=== PATIENT | male | born 1990 | race Caucasian/White ===

== ENCOUNTER 2021-05-19 12:48 | Outpatient (CLI) | payer OTHER, SELFPAY ==
--- NOTE | ~2021-05-19 | US_ITS ---
EXAMINATION: US abdomen complete EXAM DATE: 05/19/2021 14:31 INDICATION: Left upper quadrant pain. TECHNIQUE: Multiple grayscale and Doppler images of the complete abdomen were obtained (by a technolo gist who performed the scan) and subsequently reviewed. There is no prior study for comparison. FINDINGS: The abdominal aorta is normal in caliber. Visualized portion IVC is patent. The pancreatic head a nd body are normal in appearance. The pancreatic tail is not visualized. The liver has normal echogenicity and contour. There are no focal liver lesions identified. There is no evidence of intrahepatic biliary duct dilation. Portal venous flow was seen in the hepatopedal , normal direction and has normal Doppler waveform. Common bile duct measures 4 mm, which is normal. The gallbladder wall is normal in thickness, with ex pected amount of distention. No sonographic evidence of pericholecystic fluid. There is no cholelit hiases. Technologist performing exam reports patient did not demonstrate sonographic Alcocer's sign. Please note that this sign is less reliable in patients who have received pain medication. Right kidney: There is normal contour and echogenicity. It measures 10.3 x 5.1 x 4.1 centimeters. There are no focal renal lesions identified. There is no hydronephrosis. Left kidney: There is normal contour and echogenicity. It measures 10.3 x 4.9 x 4.4 centimeters. Le ft renal 2 cm cyst. There is no hydronephrosis. The spleen measures 12 centimeters and is morphologically normal. IMPRESSION: 1. Unremarkable complete abdominal ultrasound exam. Reviewed, dictated and finalized at location B. SEAT COVERER
== END 2021-05-19 12:49 | disposition home or self-care (01) ==
PROVIDERS: PCP Pediatrics; Visit Provider Physician Assistant
DX: R10.12 Left upper quadrant pain (principal)
CPT/HCPCS: 76700

== ENCOUNTER 2022-11-09 09:06 | Emergency (ER) | payer OTHER, SELFPAY ==
--- NOTE | ~2022-11-09 | XR_ITS ---
EXAMINATION: XR chest 2V DATE: 11/09/2022 10:01 INDICATION: Left chest pain. Shortness of breath. TECHNIQUE: Frontal and lateral views of the chest were obtained. COMPARISON: None. FINDINGS: The chest demonstrates clear lungs without pneumonia, pleural effusion, or pneumothorax. Th e heart size is normal. There are surgical clips in the neck. IMPRESSION: 1. No acute cardiopulmonary disease. Reviewed, dictated and finalized at location L.
[2022-11-09 09:13] VITALS: BP 137/89; PULSE 78; RESP 16; TEMP 36.6; O2SAT 98
--- NOTE | 2022-11-09 09:13 | ECG_ITS ---
Measurements Intervals [place] Rate: 76 P: 32 IN: 175 QRS: -1 QRSD: 109 T: 32 QT: 383 QTc: 431 Interpretive Statements SINUS RHYTHM INDETERMINATE AXIS INCOMPLETE RIGHT BUNDLE BRANCH BLOCK [90+ ms QRS DURATION, TERMINAL R IN V1/V2, 40+ ms S IN I/aVL/V4/V5/V6] NO PREVIOUS ECG AVAILABLE FOR COMPARISON Electronically Signed On 11-09-2022 10:19:35 CDT by Tabby Vázquez M.D.
[2022-11-09 09:26] VITALS: BP 137/89; PULSE 76; RESP 19; TEMP 36.7; O2SAT 98
[2022-11-09 09:27] VITALS: PULSE 76; O2SAT 98
[2022-11-09 09:30] LABS: Basophils Absolute Auto 0.1 K/mm3 (0.0-0.1); Basophils Percent Auto 0.5 % (0.2-1.2); Eosinophils Absolute Auto 0.6 K/mm3 (0-0.3); Eosinophils Percent Auto 5.7 % (0-4.4); Hematocrit 50.8 % (42.0-52.0); Hemoglobin 16.8 g/dL (14.0-18.0); Immature Granulocyte Absolute 0.03 K/mm3 (0.00-0.031); Immature Granulocyte Percent A 0.3 % (0-0.5); Lymphocytes Absolute Auto 2.12 K/mm3 (0.9-3.2); Lymphocytes Percent Auto 19.2 % (18.3-44.2); Mean Corpuscular HGB Conc 33.1 g/dl (32-36); Mean Corpuscular Hemoglobin 28.8 pg (26-34); Mean Platelet Volume 9.7 fl (7.4-10.4); Monocytes Absolute Auto 0.5 K/mm3 (0.1-0.6); Monocytes Percent Auto 4.4 % (2.6-8.5); Neutrophils Absolute Auto 7.7 K/mm3 (1.3-6.7); Neutrophils Percent Auto 69.9 % (45.5-73.1); Platelet Count Result 228 k/mm3 (150-375); Red Blood Count 5.84 M/mm3 (4.6-6.20); Red Cell Distribution Width 13.5 % (11.5-14.5); White Blood Count 11.1 K/mm3 (4.5-10.0)
--- NOTE | 2022-11-09 09:34 | ED.CHESTPAIN ---
HPI - Chest Pain General Chief Complaint: Chest Pain Stated Complaint: chest pain Time Seen by Provider: 11/09/22 09:16 Source: patient Mode of arrival: ambulatory Limitations: no limitations History of Present Illness HPI narrative: This is a 32-year-old male that presents to the emergency department for an episode of chest pain this morning. Reports a couple of hours ago while he was driving he had onset of a left-sided double chest pain. This was relieved with relaxation and deep breathing. It lasted about 20 minutes. He did take a full aspirin. Denies fever, cough, shortness of breath or lower extremity edema. Related Data Home Medications Medication Instructions Recorded Confirmed levothyroxine 100 mcg capsule 100 mcg PO DAILY 07/12/22 Allergies Allergy/AdvReac Type Severity Reaction Status Date / Time amoxicillin Allergy Unknown hives Verified 11/09/22 09:30 bee stings Allergy Unknown Hives Uncoded 11/09/22 09:30 Review of Systems Review of Systems: CONSTITUTIONAL: Denies fever CARDIOVASCULAR: Reports chest pain. Denies palpitations, or edema. RESPIRATORY: Denies cough or dyspnea. PSYCHIATRIC: Reports anxiety All systems reviewed & are unremarkable except as noted in HPI and below PMFSH Past Medical History Medical History (Updated 11/09/22 @ 13:06 by Sunita Francis PA-C) History of hypothyroidism Social History Social History Smoking status: Never smoker Alcohol intake: current Alcohol use details: socially Substance use: never Substance use type: does not use Lack of Transportation: No Lack of Food: Never True Current Housing: I Have Housing Concerned About Future Housing: No Difficulty Paying Gas/Electric Bills: No Difficulty Paying for Meds: No Currently Unemployed: No Education: High School Diploma/GED Difficulty w/ Childcare or Family Care: No Exam Narrative: GENERAL: Well-appearing, well-nourished, and in no acute distress. HEAD: Normocephalic, atraumatic. EYES: EOMI. NECK: No JVD CHEST: Clear to auscultation. No respiratory distress. No wheezes rales or rhonchi HEART: Regular rate and rhythm. No murmur heard. Normal peripheral pulses. EXTREMITIES: Normal range of motion. No edema. SKIN: Warm, dry, no rash. NEURO: No focal deficits. Alert and oriented x3. PSYCH: Normal mood and affect Course Course Emergency Course: Patient updated on workup and agrees with plan of care Vital Signs Vital signs: Vital Signs Temperature 98 F 11/09/22 09:13 Pulse Rate 78 11/09/22 09:13 Respiratory Rate 16 11/09/22 09:13 Blood Pressure 137/89 11/09/22 09:13 Pulse Oximetry 98 11/09/22 09:13 Oxygen Delivery Room Air 11/09/22 09:13 Temperature 98.0 F 11/09/22 09:26 Pulse Rate 76 11/09/22 11:25 Respiratory Rate 19 11/09/22 11:25 Blood Pressure 116/82 11/09/22 11:25 Pulse Oximetry 98 11/09/22 11:25 Oxygen Delivery Room Air 11/09/22 09:27 MDM - Chest Pain MDM Narrative Medical decision making narrative: Patient presents to the ER for an episode of chest pain this morning. Patient's vitals are stable. He is in no acute distress. CBC and metabolic panel without concerning findings. EKG without acute ST changes and baseline and 3-hour troponin are negative. Chest x-ray without acute cardiopulmonary abnormality. PERC criteria negative. His heart score is 0. Patient was updated on workup and agrees with plan of care. He is to follow up with PCP. He was given warnings to return to the ER Differential Diagnosis Differential diagnosis: Likely stable angina, unstable angina pectoris, atypical chest pain and costochondritis Lab Data Attestation: I reviewed the patient's lab results. 11/09/22 09:24 11/09/22 09:24 Labs: Lab Results 11/09/22 11/09/22 Range/Units 09:24 12:17 WBC 11.1 H (4.5-10.0) K/mm3 RBC 5.84 (4.6-6.20)
[2022-11-09 09:42] LABS: INR 0.9; Prothrombin Time 12.9 Seconds (11.1-14.7)
[2022-11-09 09:43] LABS: Partial Thromboplastin Time 31.3 SECONDS (22.3-36.8)
[2022-11-09 09:44] LABS: Alanine Aminotransferase 42 U/L (6-50); Albumin Level 5.1 g/dL (3.5-5.1); Alkaline Phosphatase 86 U/L (38-126); Anion Gap 10 mmol/L (8-16); Aspartate Amino Transferase 32 U/L (17-59); Bilirubin,Total 1.1 mg/dL (0.2-1.3); Blood Urea Nitrogen 13 mg/dL (9-20); Calcium 9.6 mg/dL (8.4-10.2); Carbon Dioxide 28 mmol/L (22-30); Chloride 105 mmol/L (98-107); Estimated CRCL calculation 139 ml/min; Estimated Glomerular Filt Rate > 60; Glucose 101 mg/dL (65-110); Lipase 92 U/L (23-300); Potassium 3.8 mmol/L (3.4-5.0); Sodium 143 mmol/L (137-145)
[2022-11-09 09:52] LABS: Troponin I < 0.012 ng/mL (0.000-0.034)
[2022-11-09 11:25] VITALS: BP 116/82; PULSE 76; RESP 19; O2SAT 98
[2022-11-09 12:44] LABS: Troponin I < 0.012 ng/mL (0.000-0.034)
[2022-11-09 13:23] VITALS: BP 117/87; PULSE 79; RESP 19; O2SAT 96
== END 2022-11-09 13:27 | disposition home or self-care (01) ==
PROVIDERS: General Practice; Emergency Provider Physician Assistant; PCP Physician Assistant
DX: R07.89 Other chest pain (principal); E03.9 Hypothyroidism, unspecified
CPT/HCPCS: 36415; 71046; 80053; 83690; 84484; 85025; 85610; 85730; 93005; 99284

== ENCOUNTER 2022-12-26 10:49 | Outpatient (CLI) | payer OTHER, SELFPAY ==
--- NOTE | 2022-12-26 11:30 | NEURO_ITS ---
Impression: # Complains of numbness of extremities. # Mild left ulnar neuropathy across the elbow; Normal nerve conduction study otherwise. # Normal needle/EMG without any neurogenic changes or myotonia. # Clinical correlation recommended. Nerve Conduction Studies Anti Sensory Summary Table Stim Site NR Peak (ms) P-T Amp (?V) Site1 Site2 Delta-P (ms) Dist (cm) Leonid (m/s) Left Median Anti Sensory (2-3nd Digit) Wrist 2.7 81.7 Wrist 2-3nd Digit 2.7 14.0 52 Wrist 2.8 66.0 Wrist 2-3nd Digit 2.7 14.0 52 Right Median Anti Sensory (2-3nd Digit) Wrist 2.5 75.1 Wrist 2-3nd Digit 2.5 14.0 56 Wrist 2.6 65.3 Wrist 2-3nd Digit 2.5 14.0 56 Left Radial Anti Sensory (Base 1st Digit) Wrist 1.8 24.5 Wrist Base 1st Digit 1.8 0.0 Right Radial Anti Sensory (Base 1st Digit) Wrist 2.3 15.7 Wrist Base 1st Digit 2.3 0.0 Left Sup Fibular Anti Sensory (Ant Lat Mall) 14 cm 3.6 10.8 14 cm Ant Lat Mall 3.6 16.0 44 Right Sup Fibular Anti Sensory (Ant Lat Mall) 14 cm 3.5 12.1 14 cm Ant Lat Mall 3.5 16.0 46 Left Sural Anti Sensory (Lat Mall) Calf 3.3 11.4 Calf Lat Mall 3.3 16.0 48 Right Sural Anti Sensory (Lat Mall) Calf 3.4 11.5 Calf Lat Mall 3.4 16.0 47 Left Ulnar Anti Sensory (5th Digit) Wrist 2.6 48.5 Wrist 5th Digit 2.6 14.0 54 Right Ulnar Anti Sensory (5th Digit) Wrist 2.2 67.1 Wrist 5th Digit 2.2 14.0 64 Motor Summary Table Stim Site NR Onset (ms) O-P Amp (mV) Site1 Site2 Delta-0 (ms) Dist (cm) Leonid (m/s) Left Median Motor (Abd Poll Brev) Wrist 3.4 4.0 Elbow Wrist 5.7 35.0 61 Elbow 9.1 2.2 Right Median Motor (Abd Poll Brev) Wrist 3.1 5.9 Elbow Wrist 5.3 33.0 62 Elbow 8.4 4.4 Left Peroneal Motor (Vastus Med) Ankle 4.2 2.5 Popit Ankle 9.3 46.0 49 Popit 13.5 2.0 Right Peroneal Motor (Vastus Med) Ankle 4.2 1.3 Popit Ankle 9.2 42.0 46 Popit 13.4 4.1 Left Tibial Motor (Abd Lozoya Brev) Ankle 4.6 4.1 Knee Ankle 9.7 46.0 47 Knee 14.3 3.4 Right Tibial Motor (Abd Lozoya Brev) Ankle 4.5 4.9 Knee Ankle 10.2 46.0 45 Knee 14.7 6.2 Left Ulnar Motor (Abd Dig Minimi) Wrist 3.0 3.5 A Elbow Wrist 5.7 33.0 58 A Elbow 8.7 2.8 Right Ulnar Motor (Abd Dig Minimi) Wrist 2.6 6.0 A Elbow Wrist 5.4 33.0 61 A Elbow 8.0 5.3 F Wave Studies NR F-Lat (ms) L-R F-Lat (ms) Left Median (Mrkrs) (Abd Poll Brev) 29.03 0.62 Right Median (Mrkrs) (Abd Poll Brev) 28.40 0.62 Left Peroneal (Mrkrs) (EDB) 53.40 0.75 Right Peroneal (Mrkrs) (EDB) 52.66 0.75 Left Tibial (Mrkrs) (Abd Hallucis) 53.79 0.04 Right Tibial (Mrkrs) (Abd Hallucis) 53.76 0.04 Left Ulnar (Mrkrs) (Abd Dig Min) 28.62 0.51 Right Ulnar (Mrkrs) (Abd Dig Min) 29.12 0.51 EMG Side Muscle Nerve Root Ins Act Fibs Amp Dur Recrt Comment Right 1stDorInt Ulnar C8-T1 Nml Nml Nml Nml Nml Right Ext Indicis Radial (Post Int) C7-8 Nml Nml Nml Nml Nml Right Ext Digitorum Radial (Post Int) C7-8 Nml Nml Nml Nml Nml Right BrachioRad Radial C5-6 Nml Nml Nml Nml Nml Right PronatorTeres Median C6-7 Nml Nml Nml Nml Nml Right Abd Poll Brev Median C8-T1 Nml Nml Nml Nml Nml Right AntTibialis Dp Br Fibular L4-5 Nml Nml Nml Nml Nml
== END 2022-12-26 10:50 | disposition home or self-care (01) ==
LOC: ANHNEURO 10:50
PROVIDERS: PCP Physician Assistant; Visit Provider Student in an Organized Health Care Education/Training Program
DX: G56.22 Lesion of ulnar nerve, left upper limb (principal); G62.9 Polyneuropathy, unspecified
CPT/HCPCS: 95886; 95913

== ENCOUNTER 2024-01-09 08:56 | Outpatient (NON) | payer OTHER, SELFPAY | END 2024-01-09 08:57 | disposition home or self-care (01) | LOC: ANHLAB 01-10 08:57 | PROVIDERS: PCP Physician Assistant; Visit Provider Internal Medicine Gastroenterology | DX: K20.0 Eosinophilic esophagitis (principal) | CPT/HCPCS: 88305 ==

== ENCOUNTER 2024-01-09 09:13 | Day surgery (SDC) | payer OTHER, SELFPAY ==
[2024-01-01 14:30] VITALS: BMI 31.2
[2024-01-04 09:51] VITALS: BMI 31.1
[2024-01-09 09:57] VITALS: BP 125/96; PULSE 74; RESP 18; TEMP 37.1; O2SAT 98
[2024-01-09] MEDS: LACTATED RINGERS 1,000 ML 150 ML IV CONT (10:00)
--- NOTE | 2024-01-09 10:53 | PM.HPGS ---
History of Present Illness History of Present Illness Consent: Risks, benefits, and alternatives have been discussed and questions answered. Patient agrees to proceed with procedure. Chief complaint: Dysphagia Narrative: Julio Salazar is a 33 year old male referred for EGD. Patient complains of intermittent dysphagia. Typically will have food catching the mid substernal portion of the chest usually chicken or steak. Patient has occasional but the very infrequent he was advised to take Prilosec but is only done so for the last 1-2 days. Patient to denies any history of allergies. Aside from bee stings and penicillin. Family history is noncontributory. Review of Systems Review of Systems: All systems reviewed & are unremarkable except as noted in HPI and below PMFSH Past Medical History Medical History (Updated 01/09/24 @ 06:57 by Ortiz Palacios DO) Acid reflux History of hypothyroidism Peripheral neuropathy Surgical History Surgical History H/O thyroidectomy Social History Social History Smoking status: Former smoker Tobacco type: cigarettes Alcohol intake: current Alcohol use details: 4 per month Substance use: never Substance use type: does not use Lack of Transportation: No Lack of Food: Never True Current Housing: I Have Housing Concerned About Future Housing: No Difficulty Paying Gas/Electric Bills: No Difficulty Paying for Meds: No Currently Unemployed: No Education: High School Diploma/GED Difficulty w/ Childcare or Family Care: No Living arrangements: with family Spiritual care concerns: No Meds Home Medications and Allergies Home Medications Medication Instructions Recorded Confirmed Type levothyroxine 100 mcg capsule 100 mcg PO DAILY 07/12/22 01/09/24 History omeprazole 40 mg capsule,delayed 40 mg PO DAILY #30 caps 12/31/23 01/09/24 Rx release Allergies Allergy/AdvReac Type Severity Reaction Status Date / Time amoxicillin Allergy Unknown hives Verified 01/09/24 09:56 bee venom protein (honey bee) Allergy Unknown Hives Verified 01/09/24 09:56 Vital Signs Vital Signs - 24 hr 01/09/24 09:57 Temperature 98.8 F Pulse Rate 74 Respiratory Rate 18 Blood Pressure 125/96 H Pulse Oximetry 98 Oxygen Delivery Room Air Exam Narrative: Physical exam reveals patient to be alert. Signs stable. HEENT exam is unremarkable. Patient is anicteric. Lungs are clear to auscultation and percussion. This without murmur or extra sounds. Abdomen bowel sounds are present soft nontender with no organomegaly. Assessment and Plan Assessment and plan (1) Dysphagia: Qualifiers: Dysphagia type: esophageal phase Qualified Code(s): R13.19 - Other dysphagia Code(s): R13.10 - Dysphagia, unspecified Status: Acute Assessment and Plan: Patient reports intermittent dysphagia to solid foods such as chicken. Plan for EGD to assess more thoroughly. Further recommendations may be given after endoscopy.
--- NOTE | 2024-01-09 12:22 | WPDANESEPPF ---
Anes - Initial Pre Proc Eval Procedure: Operation Date: 01/09/24 11:30 Proposed Procedures p Esophagogastroduodenoscopy - Mars Peres MD Date/Time: 01/09/24 12:22 Surgeon: Mars Peres MD Pre Op Diagnosis: Dysphagia Patient Data Age: 33 Gender: M Height: 1.91 m Weight: 113.6 kg Last Vital Signs Temp 37.1 C 01/09/24 09:57 Pulse 74 01/09/24 09:57 Resp 18 01/09/24 09:57 BP 125/96 H 01/09/24 09:57 Pulse Ox 98 01/09/24 09:57 O2 Del Method Room Air 01/09/24 09:57 Allergies Allergy/AdvReac Type Severity Reaction Status Date / Time amoxicillin Allergy Unknown hives Verified 01/09/24 09:56 bee venom protein (honey bee) Allergy Unknown Hives Verified 01/09/24 09:56 Home Medications Medication Instructions Recorded Confirmed Type levothyroxine 100 mcg capsule 100 mcg PO DAILY 07/12/22 01/09/24 History omeprazole 40 mg capsule,delayed 40 mg PO DAILY #30 caps 12/31/23 01/09/24 Rx release Patient hx anesthesia problems: none Family hx anesthesia problems: none Results Review: All pre-operative results and documents have been reviewed as part of the pre-operative evaluation. [facility] Past Medical History Medical History (Updated 01/09/24 @ 06:57 by Ortiz Palacios DO) Acid reflux History of hypothyroidism Peripheral neuropathy Surgical History Surgical History H/O thyroidectomy Social History Social History Smoking status: Former smoker Tobacco type: cigarettes Alcohol intake: current Alcohol use details: 4 per month Substance use: never Substance use type: does not use Lack of Transportation: No Lack of Food: Never True Current Housing: I Have Housing Concerned About Future Housing: No Difficulty Paying Gas/Electric Bills: No Difficulty Paying for Meds: No Currently Unemployed: No Education: High School Diploma/GED Difficulty w/ Childcare or Family Care: No Living arrangements: with family Spiritual care concerns: No Anes - Eval Final PreProcedure Day of Procedure 01/09/24 12:22 Patient weight: obese Heart: regular rate and rhythm Lungs: clear to auscultation Airway: Mallampati scale class II Neurological: alert and oriented Last oral intake: >/= 8 hours ASA classification: II Emergent: no Anesthetic plan: proceed Anesthesia type and monitoring: general GIVS and standard monitoring Results Review: All pre-operative results and documents have been reviewed as part of the pre-operative evaluation. Informed Consent: The patient's anesthetic plan and its attendant risks and benefits were discussed with the patient/family/POA. Questions were solicited and answers provided to the satisfaction of the patient/family/POA.
[2024-01-09 12:48] VITALS: BP 129/60; PULSE 66; RESP 16; O2SAT 100
[2024-01-09 12:58] VITALS: BP 123/87; PULSE 63; RESP 15; O2SAT 97
[2024-01-09 13:08] VITALS: BP 116/83; PULSE 73; RESP 15; O2SAT 99
--- NOTE | 2024-01-09 14:01 | WPDANESPN ---
Anes - Prog Note Post-Op Date/Time: 01/09/24 14:01 Cardiovascular status: normal Respiratory status: normal Airway patency: baseline Mental status: baseline Post-Op hydration status: normal Vital Signs: Last Vital Signs Temp 37.1 C 01/09/24 09:57 Pulse 73 01/09/24 13:08 Resp 15 01/09/24 13:08 BP 116/83 01/09/24 13:08 Pulse Ox 99 01/09/24 13:08 O2 Del Method Room Air 01/09/24 13:08 Pain Score (VAS): 0 I/O: Intake & Output 01/08/24 01/09/24 01/09/24 23:59 07:59 15:59 Intake Total 900 Balance 900 Post-procedural complaints: none Patient Feedback: Patient satisfied with anesthetic care. Other Findings: Patient vital signs back to baseline. Patient denies nausea and vomiting. Patient's pain under control. Patient OK for discharge.
== END 2024-01-09 13:38 | disposition home or self-care (01) ==
PROVIDERS: PCP Physician Assistant; Visit Provider Internal Medicine Gastroenterology
PROC: 0DJ08ZZ Inspection of Upper Intestinal Tract, Via Natural or Artificial Opening Endoscopic (ICD-10-PCS; CPT 43235; principal; 2024-01-09 11:30)
DX: R13.19 Other dysphagia (principal); K22.2 Esophageal obstruction
CPT/HCPCS: 43450; 43239

== ENCOUNTER 2024-01-09 17:47 | Emergency (ER) | payer OTHER, SELFPAY ==
--- NOTE | ~2024-01-09 | XR_ITS ---
EXAMINATION: XR chest 2V DATE: 01/09/2024 18:50 INDICATION: Chest pain. TECHNIQUE: Frontal and lateral views of the chest were obtained. COMPARISON: None. FINDINGS: There is mild scarring at right lung apex. No pneumonia, pleural effusion, or pneumothorax is normal. The heart size is normal. There are surgical clips in the neck. IMPRESSION: 1. No acute cardiopulmonary disease. Reviewed, dictated and finalized at location A.
--- NOTE | ~2024-01-09 | CT_ITS ---
EXAMINATION: CT soft tissue neck chest w DATE: 01/09/2024 22:09 INDICATION: Neck and chest pain after endoscopy. TECHNIQUE: Computed tomography (CT) of the neck and chest was performed with 75 mL Omnipaque-350 intr avenous contrast. Automated exposure control and iterative reconstruction technique were employed. Th e dose-length product was 1477.05 mGy-cm. COMPARISON: Chest 2 views 01/09/2024 FINDINGS: CT NECK: There are no pathologically enlarged lymph nodes. There are changes of partial resection of the thyroid. There is 0% stenosis of the proximal internal carotid arteries relative to normal distal artery lumen diameters. CT CHEST: The lungs demonstrate mild atelectasis. No pleural effusion. The heart size is normal. No p ericardial effusion. There is mild thoracic spondylosis. IMPRESSION: 1. No etiology for the patient's symptoms. Reviewed, dictated and finalized at location A.
[2024-01-09 17:57] VITALS: BP 134/81; PULSE 86; RESP 15; TEMP 36.4; O2SAT 97
--- NOTE | 2024-01-09 18:28 | ECG_ITS ---
Test Date: 2024-01-09 21:33:42 Measurements Intervals [place] Rate: 84 P: 33 TN: 160 QRS: -27 QRSD: 116 T: 30 QT: 359 QTc: 426 Interpretive Statements SINUS RHYTHM BORDERLINE LEFT AXIS DEVIATION [QRS AXIS < -20] INCOMPLETE RIGHT BUNDLE BRANCH BLOCK [90+ ms QRS DURATION, TERMINAL R IN V1/V2, 40+ ms S IN I/aVL/V4/V5/V6] NONSPECIFIC ST ELEVATION [0.05+ mV ST ELEVATION] No previous ECG available for comparison Electronically Signed On 01-10-2024 11:59:54 CDT by Ritesh Cohn M.D.
--- NOTE | 2024-01-09 18:28 | ED.GENADULT ---
HPI - General Adult General Chief complaint: Unspecified <Sunita Francis PA-C - Last Filed: 01/14/24 18:19> Stated complaint: throat pain <Sunita Francis PA-C - Last Filed: 01/14/24 18:19> Time Seen by Provider: 01/09/24 18:28 <Sunita Francis PA-C - Last Filed: 01/14/24 18:19> Focused HPI: This is a 23 year old male that presents to the ER for chest pain ongoing since his EGD. He had this with Dr. Peres today. Reports he had an esophageal dilation. He has had worsening pain since. Reports when he got out of the shower he almost passed out. Reports he has tried to eat and drink and that has made the pain worse. He has not taken anything for pain. GENERAL: Well-appearing, well-nourished, and in no acute distress. HEAD: Normocephalic, atraumatic. CHEST: Clear to auscultation. ?No respiratory distress. HEART: Regular rate and rhythm.? NEURO: ?Alert and oriented x3. Patient screened in triage and initial orders placed.? ?Additional care and disposition to be based upon?diagnostic testing and treatment. <Sunita Francis PA-C - Last Filed: 01/14/24 18:19> History of Present Illness HPI narrative: Patient 33-year-old gentleman presents emergency department with chief complaint of esophageal pain. The patient reports that he had an EGD biopsy esophageal dilatation the patient states that he started having pain in his esophagus after the procedure when he was at home. The patient reports he tried to eat and drink but had difficulty for pain patient reports that he is still able to swallow his own secretions denies shortness of breath <Hank San MD - Last Filed: 01/10/24 00:00> Related Data Home medications: Home Medications Medication Instructions Recorded Confirmed levothyroxine 100 mcg capsule 100 mcg PO DAILY 07/12/22 01/09/24 <Sunita Francis PA-C - Last Filed: 01/14/24 18:19> Allergies/adverse reactions: Allergies Allergy/AdvReac Type Severity Reaction Status Date / Time amoxicillin Allergy Hives Verified 01/11/24 09:26 bee venom protein (honey bee) Allergy Hives Verified 01/11/24 09:26 <Sunita Francis PA-C - Last Filed: 01/14/24 18:19> Review of Systems Review of Systems: A 10 system review of systems was completed on the patient and is negative except for what is stated in the HPI. Nursing and ancillary documentation was reviewed. <Hank San MD - Last Filed: 01/10/24 00:00> PMFSH Past Medical History Medical History: Medical History (Updated 01/11/24 @ 09:26 by Galo Colon) Acid reflux History of hypothyroidism Peripheral neuropathy <Sunita Francis PA-C - Last Filed: 01/14/24 18:19> Surgical History Surgical History: Surgical History (Updated 01/11/24 @ 09:26 by Galo Colon) H/O thyroidectomy <Sunita Francis PA-C - Last Filed: 01/14/24 18:19> Social History Social History: Social History (System 01/11/24 @ 09:26 by Galo Colon) Smoking status: Former smoker Tobacco type: cigarettes Alcohol intake: current Alcohol use details: 4 per month Substance use: never Substance use type: does not use Lack of Transportation: No Lack of Food: Never True Current Housing: I Have Housing Concerned About Future Housing: No Difficulty Paying Gas/Electric Bills: No Difficulty Paying for Meds: No Currently Unemployed: No Education: High School Diploma/GED Difficulty w/ Childcare or Family Care: No Living arrangements: with family Spiritual care concerns: No <Sunita Francis PA-C - Last Filed: 01/14/24 18:19> Exam Narrative: GENERAL: Well-appearing, well-nourished, and in no acute distress. HEAD: Normocephalic, atraumatic. EYES: PERRLA and EOMI. ENT: Nares clear, no rhinorrhea or epistaxis. Mucous membranes moist. Patient is swallowing his own secretions NECK: Supple. No subcutaneous emphysema CHEST: Clear to auscultation. No respiratory distress. No subcu
[2024-01-09] MEDS: PANTOPRAZOLE SODIUM IV 40 MG VIAL IV PUSH (21:09)
[2024-01-09 21:20] LABS: Basophils Percent Auto 0.2 % (0.2-1.2); Eosinophils Absolute Auto 0.1 K/mm3 (0-0.3); Eosinophils Percent Auto 0.6 % (0-4.4); Hematocrit 51.3 % (42.0-52.0); Hemoglobin 17.3 g/dL (14.0-18.0); Immature Granulocyte Absolute 0.04 K/mm3 (0.00-0.031); Immature Granulocyte Percent A 0.2 % (0-0.5); Lymphocytes Absolute Auto 1.15 K/mm3 (0.9-3.2); Mean Corpuscular HGB Conc 33.7 g/dl (32-36); Mean Corpuscular Hemoglobin 29.6 pg (26-34); Mean Corpuscular Volume 87.7 fl (80-100); Mean Platelet Volume 9.6 fl (7.4-10.4); Monocytes Absolute Auto 0.8 K/mm3 (0.1-0.6); Monocytes Percent Auto 4.3 % (2.6-8.5); Neutrophils Percent Auto 88.7 % (45.5-73.1); Platelet Count Result 235 k/mm3 (150-375); Red Blood Count 5.85 M/mm3 (4.6-6.20); Red Cell Distribution Width 13.7 % (11.5-14.5); White Blood Count 19.2 K/mm3 (4.5-10.0)
[2024-01-09 21:31] LABS: Alanine Aminotransferase 38 U/L (6-50); Albumin Level 5.1 g/dL (3.5-5.1); Alkaline Phosphatase 84 U/L (38-126); Anion Gap 11 mmol/L (4-12); Aspartate Amino Transferase 30 U/L (17-59); Blood Urea Nitrogen 15 mg/dL (9-20); Carbon Dioxide 27 mmol/L (22-30); Chloride 103 mmol/L (98-107); Estimated CRCL calculation 136 ml/min; Estimated Glomerular Filt Rate > 60; Glucose 93 mg/dL (65-110); INR 1.1; Lipase 93 U/L (23-300); Partial Thromboplastin Time 28.9 Seconds (22.3-36.8); Potassium 3.9 mmol/L (3.4-5.0); Prothrombin Time 14.4 Seconds (11.1-14.7); Sodium 141 mmol/L (137-145)
[2024-01-09 21:43] LABS: Troponin I < 0.012 ng/mL (0.000-0.034)
[2024-01-09] MEDS: BELLADONNA ALK/PHENOB ELIX 10 ML, MAG HYDROX/ALUMINUM HYD/SIMETH 30 ML, LIDOCAINE HCL 2... PO (22:56)
[2024-01-09 23:39] VITALS: PULSE 67; RESP 16; TEMP 36.6; O2SAT 93
== END 2024-01-10 00:10 | disposition home or self-care (01) ==
PROVIDERS: Physician Assistant; Emergency Provider Emergency Medicine; PCP Physician Assistant
DX: G89.18 Other acute postprocedural pain (principal); R07.0 Pain in throat; I45.10 Unspecified right bundle-branch block
CPT/HCPCS: 36415; 70491; 71046; 71260; 80053; 83690; 84484; 85025; 85610; 85730; 88305; 93005; 96374; 99284; A9270; J2470; Q9967

== ENCOUNTER 2024-10-31 21:03 | Emergency (ER) | payer SELFPAY ==
--- NOTE | ~2024-10-31 | CT_ITS ---
EXAMINATION: CT abdomen pelvis w con DATE: 10/31/2024 22:41 INDICATION: Right lower quadrant abdominal pain TECHNIQUE: Computed tomography (CT) of the abdomen and pelvis was performed with 100 mL Omnipaque-350 intravenous contrast. Automated exposure control and iterative reconstruction technique were employe d. The dose-length product was 1360.14 mGy-cm. COMPARISON: None FINDINGS: Mild dependent atelectasis in the bilateral lower lobes. Heart size is normal. No pericardial or pleu ral effusion. Liver, gallbladder, spleen, pancreas and bilateral adrenal glands are normal. 1.2 cm le ft renal cyst. There is mild right hydroureter without hydronephrosis which extends distally to parti ally obstructing 4 mm stone at the right ureterovesicular junction. Bladder is otherwise unremarkable . Small bilateral fat-containing inguinal hernias. Mild scattered diverticulosis without adjacent fro m trace stranding to suggest diverticular colitis. Small bowel and appendix are normal. No free intra peritoneal gas or fluid. No pathologically enlarged abdominal or pelvic lymphadenopathy. Subacute evaristo earing T12 compression fracture with one third anterior vertebral body height loss. IMPRESSION: 1. 4 mm at least partially obstructing stone at the right ureterovesicular junction with mild right h ydronephrosis but without joan hydroureter. 2. Subacute appearing T12 compression fracture. Reviewed, dictated and finalized at location A. IMPRESSION: 1. 4 mm at least partially obstructing stone at the right ureterovesicular junc tion with mild right hydronephrosis but without joan hydroureter. 2. Subacute appearing T12 compression fracture.
--- OUTSIDE RECORDS SUMMARY | 2024-10-31 21:05 | XMS_ITS | Clinical Summary ---
Author Organization [facility] Address [address] [place] [id number] Care Team Providers Care Belling Machine Operator Name Role Phone Alice Rai MD Primary Care Provider [phone] Social History Tobacco Use Types Packs/Day Years Used Date Smoking Tobacco: Never Assessed Sex and Gender Information Value Date Recorded Sex Assigned at Not on file Legal Sex Male 7:28 PM CDT Gender Identity Not on file Sexual Orientation Not on file Plan of Treatment Health Maintenance Due Date Last Done Comments Annual Physical 07/02/1991 Hepatitis C 2006 DTaP, Tdap and Td Vaccines ( 1 - Tdap) 07/02/2007 Hepatitis B Vaccines (1 of 3 - 19+ 3-dose series) 07/02/2007 HPV Vaccines (1 - 3-dose SCD M series) 07/02/2015 COVID-19 Vaccine ( - 2023-2 5 season) 2023 Meningococcal B Vaccine Aged Out No l onger eligible based on patient's age to complete this topic Meningococcal Vaccine Aged Out No german catracho eligible based on patient's age to complete this topic Pneumococcal Vaccine: Pediat rics (0 to 5 Years) and At-Risk Patients (6 to 49 Years) Aged Out No longer eligible b ased on patient's age to complete this topic RSV Immunizations Under 20 Months Aged Out No longer eligible based on patient's age to complete this topic Care Teams Belling Machine Operator Relationship Specialty Start Date End Date Alice Rai MD PCP - General 08/28/15
--- OUTSIDE RECORDS SUMMARY | 2024-10-31 21:05 | XMS_ITS | Data Portability ---
Author Organization [facility] SIVimal [facility] Address [address] [place] [address] Care Team Providers Care General Cargo Clerk Name Role Phone HUGO ROMAN Primary Care Provider Assessment Encounter Date Assessment Date Assessment LastModified by Organization Details LastModified Time 03/03/2022 03/03/2022 implant in mouth dental false teeth. MS in aunt mom side dx 6 years ago. Not available 03/03/2022 12:45:02 12/03/2023 12/03/2023 sent out with blood work to be fasting Not available 12/03/2023 13:17:54 Plan of Treatment Reminders Order Date Submit Date Provider Last Modified By Organization Details Last Modified Time Details Appointments None recorded. Lab CBC w/ auto diff 2023 024 DERE[facility], [address] [facility], [address], [place], [address], 4 05:10:52 CMP, serum or plasma 2023 024 [facility]ERE[facility], [address] [facility] [address], [address], 4 10:13:47 CBC w/ auto diff 2023 024 DERE[facility], [address] [facility] [address], [place], [address], 4 10:13:48 lipid panel, serum 2023 024 DEREK [facility], [address] [facility] [address] [facility], [address], [place], [address], 4 10:13:46 TSH, ultra-sensi tive, serum 2023 024 [facility]ERE[facility], [address] [facility], [address], [place], [address], 4 10:13:48 CBC w/ auto diff 2022 023 DERE[facility], [address], [place], [address], 3 20:09:38 CMP, serum or plasma 2022 023 [facility], [address], [place], [address], 3 20:09:37 TSH + free T4, serum 2022 023 [facility], [address], [place], [address], 3 10:15:37 vitamin B12 + folate, serum or blood 2021 022 [facility], [address], [place], [address], 2 07:09:55 magnesium, serum or plasma 2021 022 [facility], [address], [place], [address], 2 22:06:57 CMP, serum or plasma 2021 022 [facility], [address], [place], [address], 2 08:16:48 hepatitis C Ab, signal-to-c utoff, serum or plasma 2021 022 [facility], [address], [place], [address], 2 08:16:50 lipid panel, serum 2021 022 [facility], [address], [place], [address], 2 08:16:47 TSH + free T4, serum 2021 022 [facility], [address], [place], [address], 2 08:16:51 Referral gastroenter ologist referral 2023 024 DEREK Peres MD, [address] [place] [address] [address], [place], [address], 4 16:10:58 neurologist referral 2021 022 [email or web address] Not available 3 09:08:53 Procedures None recorded. Surgeries None recorded. Imaging None recorded. Medication Orders levothyroxi ne 100 mcg tablet 2023 024 DEREK [id number], [address] [place], [place], [id number], 4 13:14:59 levothyroxi ne 100 mcg tablet 2022 023 MAGNOLIA [id number], [address] [place], [place], [id number], 3 08:27:46 Patient TargetsNo targets recorded. Patient Instructions Encounter Date Encounter Id Patient Instructions Last Modified By Organization Details Last Modified Time 01/02/2022 [id number] A healthy lifestyle: care instructions Not available 01/03/2022 09:50:08 03/03/2022 [id number] A healthy lifestyle: care instructions Not available 03/13/2022 20:55:26 11/21/2022 [id number] A healthy lifestyle: care instructions Not available 11/21/2022 08:16:40 12/03/2023 [id number] A healthy lifestyle: care instructions Not available 12/03/2023 13:17:12 Well Visit, Ages 18 to 65: Care Instructions Not available 12/03/2023 13:16:40 Reason for Referral Neurologist Referral for Par esthesia of upper limb Referring Physician: Hugo Roman, Content Director, Encounter Date: 03/03/2022 Director Systems Referral for Chokes when swallowing Referring Physician: Hugo Roman Content Director, Encounter Date: 12/03/2023 Results Created Date Observation Date Name Description Value Unit Range Abnormal Flag Note LastModifiedBy Organization Detail LastModifiedTime 01/04/20 22 01/04/2022 LIPID PANEL cholesterol, total 192 mg/dL 100-19 9 Not Available [facility] ([facility]) [address] [place], [address], 01/04/2022 08:16:47 01/04/2001/04/2022 LIPID PANEL triglyceride s 85 mg/dL 0-149 Not Available [facility] ([facility]) [address] [place], [address], 01/04/2022 08:16:47 01/04/20 22 01/04/2022 LIPID PANEL HDL cholesterol 38 mg/dL >39 below low normal Not Available [facility] ([facility]) [address] [place], [address], 01/04/2022 08:16:47 01/04/20 22 01/04/2022 LIPID PANEL VLDL cholesterol john 16 mg/dL 5-40 Not Available [facility] ([facility]) [address] [place], [address], 01/04/2022 08:16:47 01/04/20 22 01/04/2022 LIPID PANEL LDL chol calc ([facility]) 138 mg/dL 0-99 above high normal Not Available [facility] ([facility]) [address] [facility], [place], [address], 01/04/2022 08:16:47 01/04/20 22 01/04/2022 COMP. METAB OLIC PANEL (14) glucose 85 mg/dL 70-99 Ple ase note refer ence inter ximena luciano e Not Available [facility] ([facility]) [address] [facility], [place], [address], 01/04/2022 08:16:48 01/04/20 22 01/04/2022 COMP. METAB OLIC PANEL (14) BUN 18 mg/dL 6-20 Not Available [facility] ([facility]) [address] [facility], [place], [address], 01/04/2022 08:16:48 01/04/20 22 01/04/2022 COMP. METAB OLIC PANEL (14) creatinine 0.97 mg/dL 0.76-1 .27 Not Available [facility] ([facility]) [address] [place], [address], 01/04/2022 08:16:48 01/04/20 22 01/04/2022 COMP. METAB OLIC PANEL (14) eGFR 106 mL/mi n/1.7 3 >59 Not Available [facility] ([facility]) [address] [place], [address], 01/04/2022 08:16:48 01/04/20 22 01/04/2022 COMP. METAB OLIC PANEL (14) BUN/creatini ne ratio 19 9-20 Not Available [facility] ([facility]) [address] [place], [address], 01/04/2022 08:16:48 01/04/20 22 01/04/2022 COMP. METAB OLIC PANEL (14) sodium 144 mmol/ L 134-14 4 Not Available [facility] ([facility]) [address] [place], [address], 01/04/2022 08:16:48 01/04/20 22 01/04/2022 COMP. METAB OLIC PANEL (14) potassium 4.2 mmol/ L 3.5-5. 2 Not Available [facility] ([facility]) [address] [place], [address], 01/04/2022 08:16:48 01/04/20 22 01/04/2022 COMP. METAB OLIC PANEL (14) chloride 106 mmol/ L 96-106 Not Available [facility] ([facility]) [address] [place], [address], 01/04/2022 08:16:48 01/04/20 22 01/04/2022 COMP. METAB OLIC PANEL (14) carbon dioxide, total 22 mmol/ L 20-29 Not Available [facility] ([facility]) [address] [place], [address], 01/04/2022 08:16:48 01/04/20 22 01/04/2022 COMP. METAB OLIC PANEL (14) calcium 9.9 mg/dL 8.7-10 .2 Not Available [facility] ([facility]) [address] [facility] [place], [address], 01/04/2022 08:16:48 01/04/20 22 01/04/2022 COMP. METAB OLIC PANEL (14) protein, total 7.4 g/dL 6.0-8. 5 Not Available [facility] ([facility]) [address] [facility] [place], [address], 01/04/2022 08:16:48 01/04/20 22 01/04/2022 COMP. METAB OLIC PANEL (14) albumin 5.2 g/dL 4.0-5. 0 above high normal Not Available [facility] ([facility]) [address] [place], [address], 01/04/2022 08:16:48 01/04/20 22 01/04/2022 COMP. METAB OLIC PANEL (14) globulin, total 2.2 g/dL 1.5-4. 5 Not Available [facility] ([facility]) [address] [place], [address], 01/04/2022 08:16:48 01/04/20 22 01/04/2022 COMP. METAB OLIC PANEL (14) A/G ratio 2.4 1.2-2. 2 above high normal Not Available [facility] ([facility]) [address] [place], [address], 01/04/2022 08:16:48 01/04/20 22 01/04/2022 COMP. METAB OLIC PANEL (14) bilirubin, total 1.4 mg/dL 0.0-1. 2 above high normal Not Available [facility] ([facility]) [address] [place], [address], 01/04/2022 08:16:48 01/04/20 22 01/04/2022 COMP. METAB OLIC PANEL (14) alkaline phosphatase 115 IU/L 44-121 Not Available [facility] ([facility]) [address] [place], [address], 01/04/2022 08:16:48 01/04/20 22 01/04/2022 COMP. METAB OLIC PANEL (14) AST (SGOT) 20 IU/L 0-40 Not Available [facility] ([facility]) [address] [place], [address], 01/04/2022 08:16:48 01/04/20 22 01/04/2022 COMP. METAB OLIC PANEL (14) ALT (SGPT) 32 IU/L 0-44 Not Available [facility] ([facility]) [address], [place], [address], 01/04/2022 08:16:48 01/04/20 22 01/04/2022 HCV ANTIB GRACY hep C virus Ab <0.1 s/co_ ratio 0.0-0. 9 Negat [place]: < 0.8 Indet ermin ate: 0.8 - 0.9 Posit [place]: > 0.9 HCV antib gracy alone does not diffe renti ate betwe en previ ous resol chris infec tion and activ e infec tion. The CDC and [facility]ohn guide lines recom mend that a posit [place] HCV antib gracy resul t be follo wed up with an HCV RNA test to suppo rt the diagn osis of acute HCV infec tion. [facility] offer s Hepat itis C Virus (HCV) RNA, Diagn osis, TAMIKO (0226 70) and Hepat itis C Virus (HCV) Antib gracy with refle x to Quant itati ve Real- time PCR (8670 50). Not Available [facility] ([facility]) [address] [facility], [place], [address], 01/04/2022 08:16:50 01/04/20 22 01/04/2022 TSH+F REE T4 TSH 4.500 uIU/m L 0.450- 4.500 Not Available [facility] ([facility]) [address] [place], [address], 01/04/2022 08:16:51 01/04/20 22 01/04/2022 TSH+F REE T4 T4,free(dire ct) 1.15 NG/dL 0.82-1 .77 Not Available [facility] ([facility]) [address] [place], [address], 01/04/2022 08:16:51 01/07/20 22 01/07/2022 HEPAT IC FUNCT ION PANEL (7) protein, total 7.2 g/dL 6.0-8. 5 Not Available [facility] ([facility]) [address] [place], [address], 01/07/2022 08:16:43 01/07/20 22 01/07/2022 HEPAT IC FUNCT ION PANEL (7) albumin 4.9 g/dL 4.0-5. 0 Not Available [facility] ([facility]) [address] [facility] [place], [address], 01/07/2022 08:16:43 01/07/20 22 01/07/2022 HEPAT IC FUNCT ION PANEL (7) bilirubin, total 0.7 mg/dL 0.0-1. 2 Not Available [facility] ([facility]) [address] [facility] [place], [address], 01/07/2022 08:16:43 01/07/20 22 01/07/2022 HEPAT IC FUNCT ION PANEL (7) bilirubin, direct 0.20 mg/dL 0.00-0 .40 Not Available [facility] ([facility]) [address] [facility] [place], [address], 01/07/2022 08:16:43 01/07/20 22 01/07/2022 HEPAT IC FUNCT ION PANEL (7) alkaline phosphatase 110 IU/L 44-121 Not Available [facility] ([facility]) [address] [facility] [place], [address], 01/07/2022 08:16:43 01/07/20 22 01/07/2022 HEPAT IC FUNCT ION PANEL (7) AST (SGOT) 22 IU/L 0-40 Not Available [facility] ([facility]) [address] [facility] [place], [address], 01/07/2022 08:16:43 01/07/20 22 01/07/2022 HEPAT IC FUNCT ION PANEL (7) ALT (SGPT) 29 IU/L 0-44 Not Available [facility] ([facility]) [address] [facility] [place], [address], 01/07/2022 08:16:43 01/07/20 22 01/07/2022 BILIR UBIN, TOTAL /DIRE CT, SERUM bilirubin, total 0.7 mg/dL 0.0-1. 2 Not Available [facility] ([facility]) [address] [facility], [place], [address], 01/07/2022 08:16:44 01/07/20 22 01/07/2022 BILIR UBIN, TOTAL /DIRE CT, SERUM bilirubin, direct 0.20 mg/dL 0.00-0 .40 Not Available [facility] ([facility]) [address] [facility], [place], [address], 01/07/2022 08:16:44 01/07/20 22 01/07/2022 BILIR UBIN, TOTAL /DIRE CT, SERUM bilirubin, indirect 0.50 mg/dL 0.10-0 .80 Not Available [facility] ([facility]) [address] [facility], [place], [address], 01/07/2022 08:16:44 03/03/20 22 03/03/2022 MAGNE SIUM magnesium 2.12 mg/L 1.70-2 .50 Not Available [facility] [address] [place], [address], 03/03/2022 22:06:57 03/03/20 22 03/04/2022 VITAM IN B12 AND FOLAT E vitamin B12 561 pg/mL 232-12 45 Not Available [facility] ([facility]) [address] [place], [address], 03/04/2022 07:09:55 03/03/20 22 03/04/2022 VITAM IN B12 AND FOLAT E folate (folic acid), serum 10.0 NG/mL >3.0 A serum folat e akiko ntrat ion of less than 3.1 ng/mL is consi dered to repre sent clini john defic iency . Not Available [facility] ([facility]) [address] [place], [address], 03/04/2022 07:09:55 11/22/19 23 11/21/2022 COMP. METAB OLIC PANEL (14) glucose 127 mg/dL 70-99 above high normal Not Available [facility] [address] [place] [address], [address], 11/21/2022 20:09:37 11/22/19 23 11/21/2022 COMP. METAB OLIC PANEL (14) BUN 17 mg/dL 6-[address] [facility] [address] [place] [address], [address], 11/21/2022 20:09:37 11/22/19 23 11/21/2022 COMP. METAB OLIC PANEL (14) creatinine 0.93 mg/dL 0.76-[address] [facility] [address] [place] [address], [address], 11/21/2022 20:09:37 11/22/19 23 11/21/2022 COMP. METAB OLIC PANEL (14) eGFR 111 >=60 Units for eGFR value s are mL/mi n/1.7 3 The eGFR Calcu latio n has not been valid ated for patie nts under the age of 18. If test resul ts are displ ayed for a patie nt under the age of 18, disre yeni that value . Not Available [facility] [address] [place] [address], [address], 11/21/2022 20:09:37 11/22/19 23 11/21/2022 COMP. METAB OLIC PANEL (14) BUN/creatini ne ratio 18 9-20 Not Available [facility] [address] [place] [address], [address], 11/21/2022 20:09:37 11/22/19 23 11/21/2022 COMP. METAB OLIC PANEL (14) sodium 141 mmol/ L 134-[address] [facility] [address] [place], [address], 11/21/2022 20:09:37 11/22/19 23 11/21/2022 COMP. METAB OLIC PANEL (14) potassium 4.0 mmol/ L 3.5-5. [address] [facility] [address] [place], [address], 11/21/2022 20:09:37 11/22/19 23 11/21/2022 COMP. METAB OLIC PANEL (14) chloride 104 mmol/ L 96-[address] [facility] [address] [place], [address], 11/21/2022 20:09:37 11/22/19 23 11/21/2022 COMP. METAB OLIC PANEL (14) carbon dioxide, total 23 mmol/ L 20-[address] [facility] [address] [place], [address], 11/21/2022 20:09:37 11/22/19 23 11/21/2022 COMP. METAB OLIC PANEL (14) calcium 9.9 mg/dL 8.7-[address] [facility] [address] [place], [address], 11/21/2022 20:09:37 11/22/19 23 11/21/2022 COMP. METAB OLIC PANEL (14) protein, total 7.1 g/dL 6.0-8. [address] [facility] [address] [place], [address], 11/21/2022 20:09:37 11/22/19 23 11/21/2022 COMP. METAB OLIC PANEL (14) albumin 4.8 g/dL 4.1-5. [address] [facility] [address] [place], [address], 11/21/2022 20:09:37 11/22/19 23 11/21/2022 COMP. METAB OLIC PANEL (14) globulin, total 2.3 g/dL 1.5-4. [address] [facility] [address] [place], [address], 11/21/2022 20:09:37 11/22/19 23 11/21/2022 COMP. METAB OLIC PANEL (14) A/G ratio 2.1 1.2-2. [address] [facility] [address] [place], [address], 11/21/2022 20:09:37 11/22/19 23 11/21/2022 COMP. METAB OLIC PANEL (14) bilirubin, total 0.7 mg/dL 0.0-1. [address] [facility] [address] [place] [address], [address], 11/21/2022 20:09:37 11/22/19 23 11/21/2022 COMP. METAB OLIC PANEL (14) alkaline phosphatase 92 IU/L 44-121 Not Available [facility] Department [address] [place], [address], 11/21/2022 20:09:37 11/22/19 23 11/21/2022 COMP. METAB OLIC PANEL (14) AST (SGOT) 21 IU/L 0-40 Not Available [facility] Department [address] [place] [address], [address], 11/21/2022 20:09:37 11/22/19 23 11/21/2022 COMP. METAB OLIC PANEL (14) ALT (SGPT) 35 IU/L 0-44 Not Available [facility] Department [address] [place] [address], [address], 11/21/2022 20:09:37 11/22/19 23 11/21/2022 CBC WITH DIFFE RENTI AL/PL ATELE T WBC 11.3 x10e3 /uL 3.4-10 .8 above high normal Not Available [facility] [address] [place] [address], [address], 11/21/2022 20:09:38 11/22/19 23 11/21/2022 CBC WITH DIFFE RENTI AL/PL ATELE T RBC 5.66 x10e6 /uL 4.14-[address] [facility] [address] [place], [address], 11/21/2022 20:09:38 11/22/19 23 11/21/2022 CBC WITH DIFFE RENTI AL/PL ATELE T hemoglobin 15.9 g/dL 13.0-[address] [facility] [address] [place], [address], 11/21/2022 20:09:38 11/22/19 23 11/21/2022 CBC WITH DIFFE RENTI AL/PL ATELE T hematocrit 49.8 % 37.5-[address] [facility] [address] [place], [address], 11/21/2022 20:09:38 11/22/19 23 11/21/2022 CBC WITH DIFFE RENTI AL/PL ATELE T MCV 88 fL 79-[address] [facility] [address] [place], [address], 11/21/2022 20:09:38 11/22/19 23 11/21/2022 CBC WITH DIFFE RENTI AL/PL ATELE T MCH 28.1 pg 26.6-[address] [facility] [address] [place], [address], 11/21/2022 20:09:38 11/22/19 23 11/21/2022 CBC WITH DIFFE RENTI AL/PL ATELE T MCHC 31.9 g/dL 31.5-[address] [facility] [address] [place], [address], 11/21/2022 20:09:38 08/15/20 23 11/21/2022 CBC WITH DIFFE RENTI AL/PL ATELE T RDW 13.5 % 11.5-[address] [facility] [address] [place], [address], 11/21/2022 20:09:38 11/22/19 23 11/21/2022 CBC WITH DIFFE RENTI AL/PL ATELE T platelets 259 x10e3 /uL 150-[address] [facility] [address] [place], [address], 11/21/2022 20:09:38 11/22/19 23 11/21/2022 CBC WITH DIFFE RENTI AL/PL ATELE T neutrophils 68 % notest b. Not Available [facility] [address] [place], [address], 11/21/2022 20:09:38 11/22/19 23 11/21/2022 CBC WITH DIFFE RENTI AL/PL ATELE T lymphs 22 % notest b. Not Available [facility] [address] [place], [address], 11/21/2022 20:09:38 11/22/19 23 11/21/2022 CBC WITH DIFFE RENTI AL/PL ATELE T monocytes 4 % notest b. Not Available [facility] [address] [place], [address], 11/21/2022 20:09:38 11/22/19 23 11/21/2022 CBC WITH DIFFE RENTI AL/PL ATELE T eos 5 % notest b. Not Available [facility] [address] [place] [address], [address], 11/21/2022 20:09:38 11/22/19 23 11/21/2022 CBC WITH DIFFE RENTI AL/PL ATELE T basos 1 % notest b. Not Available [facility] [address] [place] [address], [address], 11/21/2022 20:09:38 11/22/19 23 11/21/2022 CBC WITH DIFFE RENTI AL/PL ATELE T neutrophils (absolute) 7.7 x10e3 /uL 1.4-7. 0 above high normal Not Available [facility] [address] [place], [address], 11/21/2022 20:09:38 11/22/19 23 11/21/2022 CBC WITH DIFFE RENTI AL/PL ATELE T lymphs (absolute) 2.5 x10e3 /uL 0.7-3. [address] [facility] [address] [place], [address], 11/21/2022 20:09:38 11/22/19 23 11/21/2022 CBC WITH DIFFE RENTI AL/PL ATELE T monocytes(ab solute) 0.5 x10e3 /uL 0.1-0. [address] [facility] [address] [place], [address], 11/21/2022 20:09:38 11/22/19 23 11/21/2022 CBC WITH DIFFE RENTI AL/PL ATELE T eos (absolute) 0.6 x10e3 /uL 0.0-0. 4 above high normal Not Available [facility] [address] [place], [address], 11/21/2022 20:09:38 11/22/19 23 11/21/2022 CBC WITH DIFFE RENTI AL/PL ATELE T baso (absolute) 0.1 x10e3 /uL 0.0-0. [address] [facility] [address] [place], [address], 11/21/2022 20:09:38 11/22/19 23 11/21/2022 CBC WITH DIFFE RENTI AL/PL ATELE T immature granulocytes 0.2 % notest b. Not Available [facility] [address] [place], [address], 11/21/2022 20:09:38 11/22/19 23 11/21/2022 CBC WITH DIFFE RENTI AL/PL ATELE T immature grans (abs) 0.0 x10e3 /uL 0.0-0. [address] [facility] [address] [place], [address], 11/21/2022 20:09:38 11/22/19 23 11/21/2022 CBC WITH DIFFE RENTI AL/PL ATELE T NRBC 0 % 0-[address] [facility] [address] [place], [address], 11/21/2022 20:09:38 11/22/19 23 11/22/2022 TSH+F REE T4 TSH 4.470 uIU/m L 0.450- 4.500 Not Available [facility] ([facility]) [address] [place], [address], 11/22/2022 10:15:37 11/22/19 23 11/22/2022 TSH+F REE T4 T4,free(dire ct) 1.25 NG/dL 0.82-1 .77 Not Available [facility] ([facility]) [address] [place], [address], 11/22/2022 10:15:37 12/11/19 24 12/12/2023 LIPID PANEL cholesterol, total 193 mg/dL 100-19 9 Not Available [facility] ([facility]) [address] [place], [address], 12/12/2023 10:13:46 12/11/19 24 12/12/2023 LIPID PANEL triglyceride s 98 mg/dL 0-149 Not Available [facility] ([facility]) [address] [place], [address], 12/12/2023 10:13:46 12/11/19 24 12/12/2023 LIPID PANEL HDL cholesterol 37 mg/dL >39 below low normal Not Available [facility] ([facility]) [address] [place], [address], 12/12/2023 10:13:46 12/11/19 24 12/12/2023 LIPID PANEL VLDL cholesterol john 18 mg/dL 5-40 Not Available [facility] ([facility]) [address] [place], [address], 12/12/2023 10:13:46 12/11/19 24 12/12/2023 LIPID PANEL LDL chol calc ([facility]) 138 mg/dL 0-99 above high normal Not Available [facility] ([facility]) [address] [place], [address], 12/12/2023 10:13:46 12/11/19 24 12/12/2023 COMP. METAB OLIC PANEL (14) glucose 87 mg/dL 70-99 Not Available [facility] ([facility]) [address] [place], [address], 12/12/2023 10:13:47 12/11/19 24 12/12/2023 COMP. METAB OLIC PANEL (14) BUN 13 mg/dL 6-20 Not Available [facility] ([facility]) [address] [place], [address], 12/12/2023 10:13:47 12/11/19 24 12/12/2023 COMP. METAB OLIC PANEL (14) creatinine 0.97 mg/dL 0.76-1 .27 Not Available [facility] ([facility]) [address] [place], [address], 12/12/2023 10:13:47 12/11/19 24 12/12/2023 COMP. METAB OLIC PANEL (14) eGFR 104 mL/mi n/1.7 3 >59 Not Available [facility] ([facility]) [address] [facility] [place], [address], 12/12/2023 10:13:47 12/11/19 24 12/12/2023 COMP. METAB OLIC PANEL (14) BUN/creatini ne ratio 13 9-20 Not Available [facility] ([facility]) [address], [place], [address], 12/12/2023 10:13:47 12/11/19 24 12/12/2023 COMP. METAB OLIC PANEL (14) sodium 142 mmol/ L 134-14 4 Not Available [facility] ([facility]) [address] [facility] [place], [address], 12/12/2023 10:13:47 12/11/19 24 12/12/2023 COMP. METAB OLIC PANEL (14) potassium 4.1 mmol/ L 3.5-5. 2 Not Available [facility] ([facility]) [address] [facility], [place], [address], 12/12/2023 10:13:47 12/11/19 24 12/12/2023 COMP. METAB OLIC PANEL (14) chloride 105 mmol/ L 96-106 Not Available [facility] ([facility]) [address] [facility], [place], [address], 12/12/2023 10:13:47 12/11/19 24 12/12/2023 COMP. METAB OLIC PANEL (14) carbon dioxide, total 22 mmol/ L 20-29 Not Available [facility] ([facility]) [address] [facility], [place], [address], 12/12/2023 10:13:47 12/11/19 24 12/12/2023 COMP. METAB OLIC PANEL (14) calcium 9.6 mg/dL 8.7-10 .2 Not Available [facility] ([facility]) [address] [facility] [place], [address], 12/12/2023 10:13:47 12/11/19 24 12/12/2023 COMP. METAB OLIC PANEL (14) protein, total 7.0 g/dL 6.0-8. 5 Not Available [facility] ([facility]) [address] [facility] [place], [address], 12/12/2023 10:13:47 12/11/19 24 12/12/2023 COMP. METAB OLIC PANEL (14) albumin 4.8 g/dL 4.1-5. 1 Not Available [facility] ([facility]) [address] [facility], [place], [address], 12/12/2023 10:13:47 12/11/19 24 12/12/2023 COMP. METAB OLIC PANEL (14) globulin, total 2.2 g/dL 1.5-4. 5 Not Available [facility] ([facility]) [address] [facility] [place], [address], 12/12/2023 10:13:47 12/11/19 24 12/12/2023 COMP. METAB OLIC PANEL (14) bilirubin, total 1.5 mg/dL 0.0-1. 2 above high normal Not Available [facility] ([facility]) [address] [facility], [place], [address], 12/12/2023 10:13:47 12/11/19 24 12/12/2023 COMP. METAB OLIC PANEL (14) alkaline phosphatase 86 IU/L 44-121 Not Available [facility] ([facility]) [address] [facility], [place], [address], 12/12/2023 10:13:47 12/11/19 24 12/12/2023 COMP. METAB OLIC PANEL (14) AST (SGOT) 23 IU/L 0-40 Not Available [facility] ([facility]) [address] [facility], [place], [address], 12/12/2023 10:13:47 12/11/19 24 12/12/2023 COMP. METAB OLIC PANEL (14) ALT (SGPT) 32 IU/L 0-44 Not Available [facility] ([facility]) [address] [facility], [place], [address], 12/12/2023 10:13:47 12/11/19 24 12/12/2023 TSH RFX ON ABNOR MAL TO FREE T4 TSH 2.440 uIU/m L 0.450- 4.500 Not Available [facility] ([facility]) [address] [facility], [place], [address], 12/12/2023 10:13:47 12/11/19 24 12/12/2023 CBC WITH DIFFE RENTI AL/PL ATELE T WBC 8.5 x10e3 /uL 3.4-10 .8 Not Available [facility] ([facility]) [address] [facility], [place], [address], 12/12/2023 10:13:48 12/11/19 24 12/12/2023 CBC WITH DIFFE RENTI AL/PL ATELE T RBC 5.70 x10e6 /uL 4.14-5 .80 Not Available [facility] ([facility]) [address] [facility], [place], [address], 12/12/2023 10:13:48 12/11/19 24 12/12/2023 CBC WITH DIFFE RENTI AL/PL ATELE T hemoglobin 16.5 g/dL 13.0-1 7.7 Not Available [facility] ([facility]) [address] [facility], [place], [address], 12/12/2023 10:13:48 12/11/19 24 12/12/2023 CBC WITH DIFFE RENTI AL/PL ATELE T hematocrit 49.6 % 37.5-5 1.0 Not Available [facility] ([facility]) [address] [facility], [place], [address], 12/12/2023 10:13:48 12/11/19 24 12/12/2023 CBC WITH DIFFE RENTI AL/PL ATELE T MCV 87 fL 79-97 Not Available [facility] ([facility]) [address] [facility], [place], [address], 12/12/2023 10:13:48 12/11/19 24 12/12/2023 CBC WITH DIFFE RENTI AL/PL ATELE T MCH 28.9 pg 26.6-3 3.0 Not Available [facility] ([facility]) [address] [facility], [place], [address], 12/12/2023 10:13:48 12/11/19 24 12/12/2023 CBC WITH DIFFE RENTI AL/PL ATELE T MCHC 33.3 g/dL 31.5-3 5.7 Not Available [facility] ([facility]) [address] [facility], [place], [address], 12/12/2023 10:13:48 12/11/19 24 12/12/2023 CBC WITH DIFFE RENTI AL/PL ATELE T RDW 13.2 % 11.6-1 5.4 Not Available [facility] ([facility]) [address] [facility], [place], [address], 12/12/2023 10:13:48 12/11/19 24 12/12/2023 CBC WITH DIFFE RENTI AL/PL ATELE T platelets 263 x10e3 /uL 150-45 0 Not Available [facility] ([facility]) [address] [facility], [place], [address], 12/12/2023 10:13:48 12/11/19 24 12/12/2023 CBC WITH DIFFE RENTI AL/PL ATELE T neutrophils 64 % notest ab. Not Available [facility] ([facility]) [address] [facility], [place], [address], 12/12/2023 10:13:48 12/11/19 24 12/12/2023 CBC WITH DIFFE RENTI AL/PL ATELE T lymphs 26 % notest ab. Not Available [facility] ([facility]) [address] [facility], [place], [address], 12/12/2023 10:13:48 12/11/19 24 12/12/2023 CBC WITH DIFFE RENTI AL/PL ATELE T monocytes 5 % notest ab. Not Available [facility] ([facility]) [address] [facility], [place], [address], 12/12/2023 10:13:48 12/11/19 24 12/12/2023 CBC WITH DIFFE RENTI AL/PL ATELE T eos 4 % notest ab. Not Available [facility] ([facility]) [address] [facility], [place], [address], 12/12/2023 10:13:48 12/11/19 24 12/12/2023 CBC WITH DIFFE RENTI AL/PL ATELE T basos 1 % notest ab. Not Available [facility] ([facility]) [address] [facility], [place], [address], 12/12/2023 10:13:48 12/11/19 24 12/12/2023 CBC WITH DIFFE RENTI AL/PL ATELE T neutrophils (absolute) 5.5 x10e3 /uL 1.4-7. 0 Not Available [facility] ([facility]) [address] [facility], [place], [address], 12/12/2023 10:13:48 12/11/19 24 12/12/2023 CBC WITH DIFFE RENTI AL/PL ATELE T lymphs (absolute) 2.2 x10e3 /uL 0.7-3. 1 Not Available [facility] ([facility]) [address] [facility], [place], [address], 12/12/2023 10:13:48 12/11/19 24 12/12/2023 CBC WITH DIFFE RENTI AL/PL ATELE T monocytes(ab solute) 0.4 x10e3 /uL 0.1-0. 9 Not Available [facility] ([facility]) [address] [facility], [place], [address], 12/12/2023 10:13:48 12/11/19 24 12/12/2023 CBC WITH DIFFE RENTI AL/PL ATELE T eos (absolute) 0.4 x10e3 /uL 0.0-0. 4 Not Available [facility] ([facility]) [address] [facility], [place], [address], 12/12/2023 10:13:48 12/11/19 24 12/12/2023 CBC WITH DIFFE RENTI AL/PL ATELE T baso (absolute) 0.0 x10e3 /uL 0.0-0. 2 Not Available [facility] ([facility]) [address] [facility], [place], [address], 12/12/2023 10:13:48 12/11/19 24 12/12/2023 CBC WITH DIFFE RENTI AL/PL ATELE T immature granulocytes 0 % notest ab. Not Available [facility] ([facility]) [address] [facility], [place], [address], 12/12/2023 10:13:48 12/11/19 24 12/12/2023 CBC WITH DIFFE RENTI AL/PL ATELE T immature grans (abs) 0.0 x10e3 /uL 0.0-0. 1 Not Available [facility] ([facility]) [address] [facility], [place], [address], 12/12/2023 10:13:48 03/10/20 24 03/11/2024 CBC WITH DIFFE RENTI AL/PL ATELE T WBC 9.9 x10e3 /uL 3.4-10 .8 Not Available [facility] ([facility]) [address] [facility], [place], [address], 03/11/2024 05:10:51 03/10/20 24 03/11/2024 CBC WITH DIFFE RENTI AL/PL ATELE T RBC 5.81 x10e6 /uL 4.14-5 .80 above high normal Not Available [facility] ([facility]) [address] [facility], [place], [address], 03/11/2024 05:10:51 03/10/20 24 03/11/2024 CBC WITH DIFFE RENTI AL/PL ATELE T hemoglobin 16.6 g/dL 13.0-1 7.7 Not Available [facility] ([facility]) [address] [facility], [place], [address], 03/11/2024 05:10:51 03/10/20 24 03/11/2024 CBC WITH DIFFE RENTI AL/PL ATELE T hematocrit 51.3 % 37.5-5 1.0 above high normal Not Available [facility] ([facility]) [address] [place], [address], 03/11/2024 05:10:51 03/10/20 24 03/11/2024 CBC WITH DIFFE RENTI AL/PL ATELE T MCV 88 fL 79-97 Not Available [facility] ([facility]) [address] [place], [address], 03/11/2024 05:10:51 03/10/20 24 03/11/2024 CBC WITH DIFFE RENTI AL/PL ATELE T MCH 28.6 pg 26.6-3 3.0 Not Available [facility] ([facility]) [address] [place], [address], 03/11/2024 05:10:51 03/10/20 24 03/11/2024 CBC WITH DIFFE RENTI AL/PL ATELE T MCHC 32.4 g/dL 31.5-3 5.7 Not Available [facility] ([facility]) [address] [place], [address], 03/11/2024 05:10:51 03/10/20 24 03/11/2024 CBC WITH DIFFE RENTI AL/PL ATELE T RDW 13.0 % 11.6-1 5.4 Not Available [facility] ([facility]) [address] [facility], [place], [address], 03/11/2024 05:10:51 03/10/20 24 03/11/2024 CBC WITH DIFFE RENTI AL/PL ATELE T platelets 277 x10e3 /uL 150-45 0 Not Available [facility] ([facility]) [address] [facility], [place], [address], 03/11/2024 05:10:51 03/10/20 24 03/11/2024 CBC WITH DIFFE RENTI AL/PL ATELE T neutrophils 70 % notest ab. Not Available [facility] ([facility]) [address] [facility], [place], [address], 03/11/2024 05:10:51 03/10/20 24 03/11/2024 CBC WITH DIFFE RENTI AL/PL ATELE T lymphs 19 % notest ab. Not Available [facility] ([facility]) [address] [facility], [place], [address], 03/11/2024 05:10:51 03/10/20 24 03/11/2024 CBC WITH DIFFE RENTI AL/PL ATELE T monocytes 4 % notest ab. Not Available [facility] ([facility]) [address] [facility], [place], [address], 03/11/2024 05:10:51 03/10/20 24 03/11/2024 CBC WITH DIFFE RENTI AL/PL ATELE T eos 6 % notest ab. Not Available [facility] ([facility]) [address] [facility], [place], [address], 03/11/2024 05:10:51 03/10/20 24 03/11/2024 CBC WITH DIFFE RENTI AL/PL ATELE T basos 1 % notest ab. Not Available [facility] ([facility]) [address] [facility], [place], [address], 03/11/2024 05:10:51 03/10/20 24 03/11/2024 CBC WITH DIFFE RENTI AL/PL ATELE T neutrophils (absolute) 6.9 x10e3 /uL 1.4-7. 0 Not Available [facility] ([facility]) [address] [facility], [place], [address], 03/11/2024 05:10:51 03/10/20 24 03/11/2024 CBC WITH DIFFE RENTI AL/PL ATELE T lymphs (absolute) 1.9 x10e3 /uL 0.7-3. 1 Not Available [facility] ([facility]) [address] [facility], [place], [address], 03/11/2024 05:10:51 03/10/20 24 03/11/2024 CBC WITH DIFFE RENTI AL/PL ATELE T monocytes(ab solute) 0.4 x10e3 /uL 0.1-0. 9 Not Available [facility] ([facility]) [address] [facility], [place], [address], 03/11/2024 05:10:51 03/10/20 24 03/11/2024 CBC WITH DIFFE RENTI AL/PL ATELE T eos (absolute) 0.6 x10e3 /uL 0.0-0. 4 above high normal Not Available [facility] ([facility]) [address] [facility], [place], [address], 03/11/2024 05:10:51 03/10/20 24 03/11/2024 CBC WITH DIFFE RENTI AL/PL ATELE T baso (absolute) 0.1 x10e3 /uL 0.0-0. 2 Not Available [facility] ([facility]) [address] [facility], [place], [address], 03/11/2024 05:10:51 03/10/20 24 03/11/2024 CBC WITH DIFFE RENTI AL/PL ATELE T immature granulocytes 0 % notest ab. Not Available [facility] ([facility]) [address] [facility], [place], [address], 03/11/2024 05:10:51 03/10/20 24 03/11/2024 CBC WITH DIFFE RENTI AL/PL ATELE T immature grans (abs) 0.0 x10e3 /uL 0.0-0. 1 Not Available [facility] ([facility]) [address] [facility], [place], [address], 03/11/2024 05:10:51 11/10/19 23 11/09/2022 XR, chest , 2 view No observ ation record ed. [address] [address], [place], [address], 11/09/2022 12:22:04 12/28/19 23 12/26/2022 elect romyo gram + nerve condu ction study No observ ation record ed. [address] [address], [place], [address], 12/30/2022 14:32:38 12/28/19 23 12/26/2022 elect romyo gram + nerve condu ction study No observ ation record ed. [address] [address], [place], [address], 12/03/2023 12:46:14 01/09/20 24 01/09/2024 CT, neck, soft tissu e, w/ contr ast No observ ation record ed. [address] [address], [place], [address], 01/10/2024 10:25:50 Result Notes None recorded. Problems Name Problem SNOMED Code Status Onset Date Resolution Date Notes Provider Name and Address Organization Details Recorded Time Hypothyro idism 40084250 Active Alice Rai MD Attn: Kanu g,[address] [facility], [place], [address], [place] - [facility] 6 09:47:34 Hemorrhoi ds 95707715 Active Alice Rai MD Attn: Kanu plummer,[address] [facility], [place], [address], [place] [facility] 6 13:13:28 Candidias is 78599185 Completed 08/19/2015 Alice Rai MD Attn: Kanu plummer,[address] [facility], [place], [address], [place] [facility] 6 13:13:28 Obesity 041264120 Active 2016 Orville Simpson MD Attn: Kanu plummer,[address] [facility], [place], [address], [place] [facility] 7 14:26:21 History of total thyroidec jerry 012620815211 101 Active 2020 HERMAN VINCENT Attn: Kanu plummer,[address] [facility], [place], [address], [place] [facility] 1 17:31:06 Impacted cerumen of bilateral ears 124057908278 9108 Active 2020 HERMAN VINCENT Attn: Kanu plummer,[address] [facility], [place], [address], [place] [facility] 1 17:31:08 Astigmati sm 58643366 Active 2022 HERMAN VINCENT Attn: Aveqamar plummer,[address] [facility], [place], [address], [place] [facility] 3 08:25:24 Myopia 65738038 Active 2022 HERMAN VINCENT Attn: Kanu elian,[address] [facility], [place], [address], [place] [facility] 3 08:25:38 Eosinophi lic esophagit is 827000112 Active 2023 HERMAN VINCENT Attn: Kanu plummer,[address] [facility], [place], [address], [place] - [facility] 4 16:09:01 Leukocyto sis 159045607 Active 2023 HERMAN VINCENT Attn: Kanu g,[address] [facility], [place], [address], [place] - [facility] 4 10:19:36 Problem Notes None recorded. Procedures Surgical History Date Name Laterality Status Provider Name and Address Organization Details Recorded Time 4 endoscopy completed Delaney Pacheco [place] [facility] 03/10/2024 09:46:17 5 Removal of thyroid completed Alice Rai MD Attn: Accounting, [facility], [place], [address], [place] [facility] 08/28/2015 17:16:21 Imaging Results None recorded. Procedure Notes None recorded. Medical Equipment None Reported. Allergies Allergen ID Allergen Name Allergen Category Reaction Reaction Severity Criticality Documentation Date Start Date Code Code System Note Provider Name and Address Organization Details Recorded Time 99050 Product containin g penicilli n (product) medicatio n hives Not available Not available 07/03/2014 69025 8001 SNOMED Roxi Munoz [facility], [place] - [facility] 5 14:34:53 16895 amoxicill in medicatio n hives Not available Not available 10/27/2016 723 RxNorm Roxi Espinal MA null, [place] - [facility] 7 13:54:18 46570 honey bee venom medicatio n anaphylax is swelling Not available Not available Not available 10/27/2016 14164 7 RxNorm Shell Ahumada MA null, [place] - [facility] 1 14:44:08 Medications Name Sig Start Date Stop Date Status Note LastModified by Organization Details LastModified Time cyclobenzap rine 10 mg tablet TAKE 1 TABLET BY MOUTH THREE TIMES DAILY FOR 7 DAYS NEEDED active Not Available Not Available No t Available levothyroxi ne 175 mcg tablet Take 1 tablet every day by oral route for 90 days. 12/13 completed Not Available Not Available Not Available clindamycin HCl 300 mg capsule Take 1 capsule every 6 hours by oral route for 7 days. 03/15 completed Not Available Not Available Not Available azithromyci n 250 mg tablet TAKE 2 TABLETS BY MOUTH FOR 1 DAY THEN TAKE 1 TABLET BY MOUTH DAILY FOR 4 DAYS 12/02 completed Not Available Not Available Not Available ibuprofen 800 mg tablet 08/07 completed Not Available Not Available Not Available benzonatate 200 mg capsule TAKE 1 CAPSULE BY MOUTH THREE TIMES DAILY NEEDED 12/02 completed Not Available Not Available Not Available hydrocodone 5 mg-acetamin ophen 325 mg tablet 08/07 completed Not Available Not Available Not Available prednisone 20 mg tablet 01/02 completed Not Available Not Available Not Available Debrox 6.5 % ear drops INSTILL 5 DROPS INTO AFFECTED EAR(S) BY OTIC ROUTE 2 TIMES PER DAY 01/02 completed Not Available Not Available Not Available ciprofloxac in 500 mg tablet TAKE 1 TABLET BY MOUTH EVERY 12 HOURS FOR 7 DAYS active Not Available Not Available No t Available sulfamethox azole 800 mg-trimetho prim 160 mg tablet 03/15 completed Not Available Not Available Not Available omeprazole 40 mg capsule,del ayed release TAKE 1 CAPSULE BY MOUTH DAILY active Not Available Not Available No t Available tramadol 50 mg tablet 03/15 completed Not Available Not Available Not Available triamcinolo ne acetonide 0.1 % topical cream APPLY A THIN LAYER TO THE AFFECTED AREA(S) BY TOPICAL ROUTE ONCE PER DAY 03/15 completed Not Available Not Available Not Available levothyroxi ne 100 mcg tablet TAKE 1 TABLET BY MOUTH EVERY DAY BEFORE A MEAL active Not Available Not Available No t Available oxycodone-a cetaminophe n 5 mg-325 mg tablet 08/07 completed Not Available Not Available Not Available levothyroxi ne 88 mcg tablet TAKE 1 TABLET BY MOUTH EVERY DAY 05/17 completed Not Available Not Available Not Available Euthyrox 150 mcg tablet Take 1 tablet every day by oral route for 30 days. 03/15 completed Not Available Not Available Not Available oseltamivir 75 mg capsule 03/15 completed Not Available Not Available Not Available mupirocin 2 % topical ointment APPLY A SMALL AMOUNT TO THE AFFECTED AREA BY TOPICAL ROUTE 3 TIMES PER DAY 03/15 completed Not Available Not Available Not Available methylpredn isolone 4 mg tablets in a dose pack 03/15 completed Not Available Not Available Not Available clotrimazol e 1 % topical cream APPLY TO THE AFFECTED AND SURROUNDI NG AREAS OF SKIN BY TOPICAL ROUTE 2 TIMES PER DAY IN THE MORNING AND EVENING 08/07 completed Not Available Not Available Not Available levothyroxi ne 150 mcg capsule Take 1ea po qd 08/07 completed Not Available Not Available Not Available Vitals Date Recorded Body height Body mass index (BMI) Body weight Heart rate Oxygen saturation Oxygen saturation in Arterial blood by Pulse oximetry Systolic And Diastolic Provider Name and Address Organization Details Last Updated DateTime 3 190.5 cm 31.6 kg/m2 066141. 57 g 90 /min 98 % 98 % 126/76 mm[Hg] Tabby Belcher MA [facility] 3 08:09:52 Date Recorded Body height Body mass index (BMI) Body weight Heart rate Oxygen saturation Oxygen saturation in Arterial blood by Pulse oximetry Systolic And Diastolic Provider Name and Address Organization Details Last Updated DateTime 4 190.5 cm 31.7 kg/m2 222882. 46 g 95 /min 97 % 97 % 131/83 mm[Hg] Shell Ahumada MA [facility] 4 12:07:13 Date Recorded Body height Body mass index (BMI) Body weight Heart rate Oxygen saturation Oxygen saturation in Arterial blood by Pulse oximetry Systolic And Diastolic Provider Name and Address Organization Details Last Updated DateTime 2 190.5 cm 31 kg/m2 794060. 61 g 95 /min 97 % 97 % 112/70 mm[Hg] Shell Ahumada MA [facility] 2 14:43:57 Date Recorded Body height Body mass index (BMI) Body weight Heart rate Oxygen saturation Oxygen saturation in Arterial blood by Pulse oximetry Systolic And Diastolic Provider Name and Address Organization Details Last Updated DateTime 2 190.5 cm 31.1 kg/m2 827839. 5 g 88 /min 97 % 97 % 134/70 mm[Hg] Shell Ahumada MA [facility] 2 12:25:06 Date Recorded Body height Body mass index (BMI) Body weight Heart rate Oxygen saturation Oxygen saturation in Arterial blood by Pulse oximetry Systolic And Diastolic Provider Name and Address Organization Details Last Updated DateTime 4 190.5 cm 32.8 kg/m2 157704. 9 g 84 /min 96 % 96 % 124/86 mm[Hg] Delaney Pacheco MA [place] - [facility] 4 09:43:59 Social History Question Answer Notes LastModified by Organizat ion Details LastModified Time Tobacco Smoking Status Never Smoker Shell Ahumada MA null, [place] - [facility] 01/02/2022 14:42:15 Do You Have An Advance Directive? No [email or web address] Information not available 10/27/2016 What Is Your Level Of Caffeine Consumption? Heavy [email or web address] Information not available 10/27/2016 How Much Tobacco Do You Chew? None [email or web address] Information not available 10/27/2016 In The 14 Days Before Symptom Onset, Have You Had Close Contact With A Laboratory-confir med COVID-19 While That Case Was Ill? Yes Information not available 11/21/2022 In The 14 Days Before Symptom Onset, Have You Had Close Contact With A Person Who Is Under Investigation For COVID-19 While That Person Was Ill? Yes [email or web address] Information not available 11/21/2022 Have You Been To An Area Known To Be High Risk For COVID-19? Yes Went To ER [email or web address] Information not available 11/21/2022 What Type Of Diet Are You Following? REGULAR [email or web address] Information not available 10/27/2016 Which Illicit Or Recreational Drugs Have You Used? None [email or web address] Information not available 10/27/2016 Education 12 [email or web address] Information not available 10/27/2016 Hard Of Hearing Or Deaf In One Or Both Ears? No [email or web address] Information not available 10/27/2016 Legally Blind In One Or Both Eyes? No [email or web address] Information no t available 10/27/2016 Live Alone Or With Others? Alone [email or web address] Information not available 10/27/2016 What Was The Date Of Your Most Recent Tobacco Screening? 03/10/2024 Information not available 03/10/2024 How Many Children Do You Have? 0 [email or web address] Information not available 10/27/2016 Are You Sexually Active? Yes [email or web address] Information not available 10/27/2016 Are You Passively Exposed To Smoke? Yes [email or web address] Information no t available 10/27/2016 How Much Tobacco Do You Smoke? No [email or web address] Information not available 10/27/2016 General Stress Level Low Information not available 10/27/2016 Has Tobacco Cessation Counseling Been Provided? Yes Information not available 03/15/2021 On What Date Was Tobacco Cessation Counseling Provided? 03/10/2024 Information not available 03/10/2024 Sex: Unknown Functional Status Question Answer Note LastModified by Organizat ion Details LastModified Time Do you use any illicit or recreational drugs? No Information not available 03/15/2021 What is your level of alcohol consumption? Occasional [email or web address] Information not available 07/03/2014 Are you currently employed? No Information not available 10/27/2016 Are you able to care for yourself independently? Yes Information not available 10/27/2016 Mental Status None recorded. Family History Relationship Description Onset Age of this Age Resolved Age Notes LastModified by Organization Details LastModified Time Father Harmful pattern of use of alcohol Not available 13:55:14 Mother Disorder of thyroid gland Not available 13:55:24 Mother Hypertensive disorder [email or web address] Not available 13:55:35 Mother Migraine [email or web address] Not avail able 10/27/2016 13:55:44 Medical History Condition Response Coronary Artery Disease N Other N Atrial Fibrillation N High Blood Pressure N Kidney or Bladder Problems N Thyroid Problems Y GI Problems N Depression N COPD N Blood Clots N Skin Problems N Anemia N Heart Attack (DC) N Anxiety Disorder N Diabetes N Muscle, Joint, or Bone Problems N Seizures/Epilepsy N Acid Reflux (GERD) N Cancer N Stroke N Asthma N Allergies N High Cholesterol N Hepatitis N Liver Disease N Headaches N Heart Failure N Osteoporosis N Immunizations Vaccine Type Date Status Note Provider Nam e and Address Organization Details Recorded Time Influenza, split virus, trivalent, preservative completed Shell Ahumada [place] null, [place] - [facility] 03/31/2021 16:46:38 Tdap 7 completed Not Available [facility] 04/26/2019 02:33:54 Influenza, split virus, quadrivalent, PF 2 completed Shell Ahumada MA null, [place] - [facility] 01/12/2022 09:38:50 Influenza, split virus, trivalent, PF 4 completed HERMAN VINCENT Attn: Accounting,[address], [place], [address], [facility] 03/10/2024 10:11:57 Past Encounters Encounter ID Performer Location Encounter Start Date Encounter Closed Date Diagnosis/Indication Diagnosis SNOMED-CT Code Diagnosis ICD10 Code Diagnosis Note [id number] Elsy Rodgers MD [facility] ([facility]) [address] [place] [address] 07/03/2014 13:59:00 07/06/2014 09:42:37 Hypothyroidism [id number] Continue with current Synthroid dose. 150mcg QD Last labs 12/2013- TSH was normal. Need info on his surgery - patient is poor historian and is unsure of reason for his thyroid surgery Adult heal th examination [id number] Counseled about STI transmissi on and low risk of STI transx via sharing of saliva thru kissing. Will follow up with testing at the [facility] where the testing is free and not thru his insurance. Last negative testing was approx. 4 months ago. [id number] Andrew Price MD [facility] [address] [facility] [address] [place] [address] 01/02/2015 18:46:36 01/02/2015 19:11:34 Hemorrhoids [id number] discussed and will soak and keep area clean and dry Candidiasis [id number] Alice Rai MD [facility] [address] [place] [address] [address] [place] [address] 08/28/2015 11:34:01 09/02/2015 03:47:52 Hypothyroidism 84410318 E03.9 - d/t thyroidect millicent 04/2014 for goiter - continue levothyrox ine 150 mcg daily - recheck TSH, FT4k and adjust levo based on labs RTC when convenient for well exam [id number] [facility] [address] [place] [address] 06/27/2016 12:07:04 06/28/2016 12:10:34 History and physical examination, pre-employment 748335623 Z02.1 tsh screen. tsh results pending. will keep physical until results return. poss. tailoring of synthroid to be done. pt may not be cleared if labs abnormal. Disorder o f thyroid gland 51222004 E07.9 [id number] Orville Simpson MD [facility] ([facility]) [address] [place] [phone] 10/27/2016 13:02:14 10/30/2016 16:58:16 Hypothyroidism 17062810 E03.9 Obesity 944843654 E66.9 [id number] Orville Simpson MD [facility] ([facility]) [address] [place] [address] 12/06/2016 13:50:47 12/12/2016 12:48:07 [id number] [facility] [place] [address] [place] [address] 05/14/2017 13:21:16 05/15/2017 12:21:43 Cyst of skin 270292820 L72.8 [id number] Orville Simpson MD [facility] ([facility]) [address] [place] [address] 05/21/2017 15:32:40 05/30/2017 14:09:55 Obesity 800603961 E66.9 Infection of sebaceous cyst 911782983 L72.3 [id number] Orville Simpson MD [facility] ([facility]) [address] [place] [address] 12/12/2017 15:26:19 12/13/2017 15:51:59 Hypothyroidism 44708089 E03.9 Obesity 308725370 E66.9 Eczema 83912143 L30.9 [id number] HERMAN VINCENT [facility] [address] [place] [address] 03/15/2021 14:33:11 03/18/2021 14:19:55 Left upper quadrant pain 543214204 R10.12 Patient feels like there is something on his LUQ. Unable to feel any masses or abnormalit ies on exam. Patient has no pain. Will obtain US to R/O enlarged spleen. In lack of any other symptoms or pain will monitor if US is negative. Impacted c erumen of bilateral ears [id number] 256391 H61.23 on exam B/L impacted cerumen History of total thyroidectomy 4713943399 81862 Z90.89 patient had goiter evaluated and had complete thyroidect millicent in 2014. need records. Patient was taking levothyrox ine but has ran out - tsh mildly elevated with normal T4- start levothyrox ine 88mcg and re-evaluat e in 2 weeks with TSH Obesity 511866048 E66.9 BMI 33.9 - encouraged healthy diet- cutting back on sugary drinks- implementi ng 30 mins of exercise 5x /week Tachycardia 5237603 R00. 0 patient had elevated HR when first walked in. this normalized by the end. Will monitor. [id number] HERMAN VINCENT [facility] [address] [place] [address] 01/02/2022 14:29:27 01/03/2022 15:05:56 Hyperlipidemia 49526170 E78.5 Administra tion of influenza vaccine 28900816 Z23 administer ed today History of total thyroidectomy 1525236117 01288 Z90.89 patient had goiter evaluated and had complete thyroidect millicent in 2014. need records. Patient was taking levothyrox ine but has ran out - tsh mildly elevated with normal T4- doing well on levothyrox ine 100mcg Obesity 922102892 E66.9 BMI 31 - encouraged healthy diet- cutting back on sugary drinks- implementi ng 30 mins of exercise 5x /week Hypothyroidism 24300029 E03.9 Liver func tion tests outside reference range 333777476 R94.5 elevated liver enzymes on last encournter .- repeat [id number] HERMAN VINCENT [facility] [address] [facility] [place] [address] 03/03/2022 12:15:12 03/09/2022 09:44:41 Paresthesia of upper limb 46693295 R20.2 Numbness of toe 73684521 8 R20.0 Twitching eye 824260163 H55.89 Obesity 462896693 E66.9 BMI 31.1 - encouraged healthy diet- cutting back on sugary drinks- implementi ng 30 mins of exercise 5x /week [id number] HERMAN VINCENT [facility] [address] [place] [address] 11/21/2022 08:06:34 11/21/2022 08:33:30 Obesity 965810377 E66.9 BMI 31.6 - encouraged healthy diet- cutting back on sugary drinks- implementi ng 30 mins of exercise 5x /week Hypothyroidism 93325559 E03.9 patient had goiter evaluated and had complete thyroidect millicent in 2014. need records.ne eds refills Atypical chest pain 1025 50944 R07.89 one episode of CP 11/08/22 leading to ER. troponin, EKG, cxr wnl. no further episodes since this time. no previous episodes. [id number] Johnnie Pimentel MD [facility] [address] [place] [address] 12/03/2023 11:56:16 12/03/2023 13:40:36 Adult health examination 644367406 Z00.00 - labs- GI- refills for thyroid medication Hypothyroidism 13073033 E03.9 patient had goiter evaluated and had complete thyroidect millicent in 2014. need records.ne eds refills Chokes whe n swallowing 791431031 R09.89 choking with swallowing meats and sushi and occasional ly smoothiesd enies reflux ddx: esophageal spasm, esophageal webs/stric tures- will sent to GI for eval Obesity 936693957 E66.8 BMI 31.7 [id number] Johnnie Pimentel MD [facility] [address] [place] [address] 03/10/2024 09:34:35 03/10/2024 13:22:02 Eosinophilic esophagitis 502348066 K20.[address] Kathya Stinson on dupixent Leukocytosis 544792511 D 72.829 patient with transient elevation of WBC. recent ER visit with WBC 19.2 WBC 11.2 ( 11/2022) 8.5 ( 01/2024) 19 (01/2024) Administra tion of influenza vaccine 98505069 Z23 administer ed today Health Concerns Section Related Observation LastModified by Organization Detai ls LastModified Time None Recorded Concern Status LastModified by Organization Details LastModified Time None Recorded Advance Directives Directive N: Payers Insurance Date Sequence Insurance Name Policy Number Policy Crow Covered Member ID Crow Member ID Guarantor Name 01/02/2022 1 [employer] [facility] (MEDICAID HMO) [id number] Julio Salazar [id number] Julio Salazar 01/02/2022 1 [facility] (MEDICAID H[facility]) Julio Salazar [id number] Julio Salazar 03/17/2024 1 [facility] [id number] Julio Salazar [id number] Julio Salazar 10/27/2016 SLIDING FEE SCHEDULE - DISCOUNT Julio Salazar 10/27/2016 1 *SELF PAY* An damian Salazar 01/02/2022 2 [facility] - DOS PRIOR TO 2020 (MEDICAID REPLACEMENT - HMO) Julio Salazar [id number] Julio Salazar 01/02/2022 1 [facility] [id number] Julio Salazar [id number] Julio Salazar 01/02/2022 1 [facility] Julio Salazar [id number] Julio Salazar Notes Date Note Type Note Provider Name and Address Organization Details Recorded Time 01/02/2022 text/html Julio is a 31 YO M pmhxz goiter s/p total thyroidectomy (2014), obesity presenting to establish Patient doing well on levothyroxine 100mcg. sates he has been more active and tried to cut back on cholesterol foods. He would like to obtain labs but is not fasting. Needs refills. No other complaints today. would likeflu shot HERMAN VINCENT Attn: Accounting,[address] [place], [address], [facility] 01/03/2022 09:51:01 03/03/2022 text/html ROS as noted in the HPI Julio is a 31 YO M here for multiple complaints Right first toe two weeks ago felt numb and lasted two days. right shoulder numb down to fingers one episode yesterday. no longer today. lasted 45 minutes. no previous episodes unless sitting long time. has eye twitching for long time on left eye about a year. Happens randomly once per week. Lasts 45 minutes. States aunt has MS on mother side. hydrating and sleeps well in day due to working nights. lifting dollys at work 60 lb and having to move them. no weakness. HERMAN VINCENT Attn: Accounting, [address] [place], [address], [facility] 03/13/2022 20:56:27 11/21/2022 text/html Julio presents for ER f/u On 11/09/22 went to [place] ER for chest pain expeirenced while driving. L sided CP was a/w feeling shaky and sob. xray, ekg and troponin normal. thinks it was a panic attack. sleep denies anxiety, occasional heart burn. 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 has new glasses. did see neurologists and will get EMG study next month. dec 20. HERMAN VINCENT Attn: Accounting,[address] [place], [address], [facility] 11/21/2022 08:38:05 12/03/2023 text/html ROS as noted in the HPI Julio is a 33 YO M here for wellness/refills and c/o of trouble swallowing certain foods can't swallow with certain foods-raw fish, steak and feels like cant breath. also happens with smoothies. does not happen with anything else. Avoids these foods. last episode was about 3 months ago when he bought sushi, I almost in a grocery parking lot. He denies reflux. He wonders if he has eosinophilic esophagitits. States only red meat he can eat is wagu. HERMAN VINCENT Attn: Accounting,[address] [place], [address], [facility] 12/03/2023 13:17:58 03/10/2024 text/html Julio is a 33 YO M here for ER f/u He was recently seen at Dr sullivan office for EGD. He was given a dilation during procedure and pathology showed EOS esophagitits. He is on PPI and is in process of starting dupixent. He went to ER note after procedure due to trouble swallowing saliva. In ER CT was normal. He did have elevated WBC 19.2. Today e reports feeling much better. Eating and swallowing normally. HERMAN VINCENT Attn: Accounting,[address] [facility], [place], [address], [facility] 03/10/2024 10:20:24
--- OUTSIDE RECORDS SUMMARY | 2024-10-31 21:05 | XMS_ITS | Clinical Summary ---
Author Organization [facility] [employer] Address [address] [place] [address] Care Team Providers Care Shore Working Supervisor Name Role Phone Unavailable Primary Care Provider Unavailabl e Source Comments [facility] [employer],non-owned Affiliates and Associated Physician Practices is amultiple site organization consisting of ambulatory clinics and hospital sitesin [place], [place], [place] and [place]. This disclosure is being madepursuant to the Care Everywhere program and may not contain all information available regarding this patient. Last updated 17.[facility] [employer] Allergies Active Allergy Reactions Criticality Noted Date Comments Amoxicillin Urticaria Medium 12/22/2018 Medications * Be aware that medications may not be up to date on this document. Alwaysverify current medications with the patient. levothyroxine (SYNTHROID) 112 MCG tablet Take 112 mcg by mouth daily before breakfast Active mupirocin (BACTROBAN) 2 % ointmentIndicati ons:Cellulitis, unspecified cellulitis site Apply to affected area 3 times daily 22 g 9 Active Active Problems No known active problems Social History Tobacco Use Types Packs/Day Years Used Date Smoking Tobacco: Never Smokeless Tobacco: Never Sex and Gender Information Value Date Recorded Sex Assigned at Not on file Legal Sex Male 9:03 AM CDT Gender Identity Not on file Sexual Orientation Not on file Last Filed Vital Signs Vital Sign Reading Time Taken Comments Blood Pressure 124/78 12/22/2018 3:24 PM CDT Pulse 74 12/22/2018 3:24 PM CDT Temperature 36.4 C (97.6 F) 12/22/2018 3:24 PM CDT Respiratory Rate 16 12/22/2018 3:24 PM CDT Oxygen Saturation - - Inhaled Oxygen Concentration - - Weight 111.6 kg (246 lb) 12/22/2018 3:24 PM CDT Height 190.5 cm (6' 3) 12/22/2018 3:24 PM CDT Body Mass Index 30.75 12/22/2018 3:24 PM CDT Plan of Treatment Health Maintenance Due Date Last Done Comments HIV SCREENING 07/02/2003 HEPATITIS C SCREENING 06/27/2006 DTAP/TDAP/TD VACCINES (1 - Tdap) 07/02/2007 HEPATITIS B VACCINE (1 of 3 - 19+ 3-dose series) 07/02/2007 HPV VACCINE (1 - 3-dose SCDM series) 07/02/2015 COVID-19 VACCINE (1 - 2023-2 5 season) 2023 DEPRESSION SCREENING 04/09/2024 INFLUENZA VACCINE (#1) 2024 ZOSTER VACCINE (1 of 2) 2038 HIB VACCINE Aged Out No longer eligi ble based on patient's age to complete this topic MENINGOCOCCAL (Group B) VACC INE SHARED DECISION-MAKING Aged Out No longer eligibl e based on patient's age to complete this topic MENINGOCOCCAL GROUPS A/C/Y/W VACCINE Aged Out No longer eligible b ased on patient's age to complete this topic PNEUMOCOCCAL VACCINE Aged Out No long er eligible based on patient's age to complete this topic Insurance [facility] SELF PAY NO INSURANCE Member Subscriber Plan / Payer (Ef fective for All Dates) Name:Julio Salazar Jr. Member ID:Not on file Relation to Subscriber:Not on file Name:JULIO SALAZAR Subscriber ID:Not on file (Home) Address: [address] [place] [id number] Payer ID:Not on file Group ID:Not on file Type:Self Pay Address: [place], [place]
[2024-10-31 21:07] VITALS: BP 134/106; PULSE 83; RESP 22; TEMP 36.9; O2SAT 99
[2024-10-31 21:57] LABS: Hematocrit 45.7 % (42.0-52.0); Hemoglobin 15.1 g/dL (14.0-18.0); Immature Granulocyte Percent A 0.3 % (0-0.5); Lymphocytes Absolute Auto 3.06 K/mm3 (0.9-3.2); Mean Corpuscular HGB Conc 33.0 g/dl (32-36); Mean Corpuscular Hemoglobin 28.8 pg (26-34); Mean Corpuscular Volume 87.0 fl (80-100); Nucleated Red Blood Cells Absolute Auto 0.000 K/mm3 (0.0-0.012); Nucleated Red Blood Cells Perc 0.0 % (0.0-0.2); Platelet Count Result 214 k/mm3 (150-375); Red Blood Count 5.25 M/mm3 (4.6-6.20); White Blood Count 10.8 K/mm3 (4.5-10.0)
[2024-10-31] MEDS: MORPHINE SULFATE (*CRX) 4 MG/ML INJ IV PUSH (22:00)
[2024-10-31] MEDS: ONDANSETRON INJ 4 MG/2 ML VIAL IV PUSH (22:00)
[2024-10-31 22:05] LABS: Add Urine Microscopic? YES; Appearance Urine Cloudy (Clear); Glucose Urine UA Negative (Negative); Leukocyte Esterase Ur Negative LEU/UL (Negative); Nitrate Urine Negative (Negative); Non Pathogenic Casts 0-2; Specific Grav Ur 1.026 (1.001-1.035)
[2024-10-31 22:27] LABS: Alanine Aminotransferase 42 U/L (6-50); Albumin Level 4.5 g/dL (3.5-5.1); Alkaline Phosphatase 82 U/L (38-126); Anion Gap 10 mmol/L (4-12); Aspartate Amino Transferase 32 U/L (17-59); Bilirubin,Total 1.0 mg/dL (0.2-1.3); Blood Urea Nitrogen 15 mg/dL (9-20); Calcium 9.9 mg/dL (8.4-10.2); Carbon Dioxide 26 mmol/L (22-30); Chloride 106 mmol/L (98-107); Estimated CRCL calculation 120 ml/min; Estimated Glomerular Filt Rate > 60; Glucose 108 mg/dL (65-110); Lipase 93 U/L (23-300); Potassium 3.5 mmol/L (3.4-5.0); Sodium 142 mmol/L (137-145); Total Protein 7.4 g/dL (6.3-8.2)
[2024-10-31 23:07] VITALS: BP 121/78; PULSE 79; RESP 12; O2SAT 93
--- NOTE | 2024-10-31 23:10 | PC.NURSE ---
Report to Dharmesh RAYMOND
--- NOTE | 2024-11-01 00:21 | ED_ITS ---
HPI - Male Genitourinary General Chief complaint: Urogenital-Male Stated complaint: flank pain Time Seen by Provider: 10/31/24 23:56 Source: patient Mode of arrival: ambulatory Limitations: no limitations History of Present Illness HPI Narrative: This is a 34-year-old male that presents emergency department for right lower quadrant abdominal pain. Several hours. Reports associated nausea. Denies fevers, vomiting, dysuria, hematuria. Related Data Home Medications ?Medication ?Instructions ?Recorded ?Confirmed ?Last Taken ?Type levothyroxine 100 mcg capsule 100 mcg PO DAILY 07/12/22 06/26/24 Unknown History Allergies Allergy/AdvReac Type Severity Reaction Status Date / Time amoxicillin Allergy Hives Verified 10/31/24 21:23 bee venom protein (honey bee) Allergy Hives Verified 10/31/24 21:23 Review of Systems 2 Review of Systems: All systems reviewed & are unremarkable except as noted in HPI and below PMFSH Past Medical History Medical History Acid reflux History of hypothyroidism Peripheral neuropathy Surgical History Surgical History H/O thyroidectomy Social History Social History Smoking status: Former smoker Tobacco type: cigarettes Alcohol intake: current Alcohol use details: Social Substance use: never Substance use type: does not use Lack of Transportation: No Lack of Food: Never True Current Housing: I Have Housing Concerned About Future Housing: No Difficulty Paying Gas/Electric Bills: No Difficulty Paying for Meds: No Currently Unemployed: No Education: High School Diploma/GED Difficulty w/ Childcare or Family Care: No Living arrangements: with family Spiritual care concerns: No Exam 2 Narrative: GENERAL: Well-appearing, well-nourished, and in no acute distress. HEAD: Normocephalic, atraumatic. EYES: EOMI. CHEST: Clear to auscultation. No respiratory distress. No wheezes rales or rhonchi HEART: Regular rate and rhythm. No murmur heard. Normal peripheral pulses. ABDOMEN: Soft, nontender, nondistended, normal active bowel sounds. EXTREMITIES: Normal range of motion. No edema. SKIN: Warm, dry, no rash. NEURO: No focal deficits. Alert and oriented x3. PSYCH: Normal mood and affect Course Course Emergency Course: Patient updated on his workup. Reports relief with morphine Vital Signs Vital signs: Vital Signs Temperature 98.5 F 10/31/24 21:07 Pulse Rate 83 10/31/24 21:07 Respiratory Rate 22 H 10/31/24 21:07 Blood Pressure 134/106 H 10/31/24 21:07 Pulse Oximetry 99 10/31/24 21:07 Oxygen Delivery Room Air 10/31/24 21:07 Temperature 98.5 F 10/31/24 21:07 Pulse Rate 79 10/31/24 23:07 Respiratory Rate 12 10/31/24 23:07 Blood Pressure 121/78 10/31/24 23:07 Pulse Oximetry 93 10/31/24 23:07 Oxygen Delivery Room Air 10/31/24 21:07 MDM - Male Genitourinary MDM Narrative Medical decision making narrative: Patient presents the emergency department for right lower quadrant abdominal pain. He is afebrile and nontoxic appearing. His vitals are stable. CBC with mild leukocytosis to 10.8. Metabolic panel with normal kidney function. Urine with red blood cells. CT abdomen pelvis shows a 4 mm right UVJ stone. Subacute appearing T12 compression fracture. Patient was updated on his workup and agrees with plan of care. Will be given follow up with urology. He was given warnings to return to the ER Differential Diagnosis Differential diagnosis: Likely urinary tract infection and other (kidney stones, appendicitis) Lab Data Attestation: I reviewed the patient's lab results. 10/31/24 21:48 10/31/24 21:48 Labs: Lab Results 10/31/24 10/31/24 Range/Units 21:48 21:49 WBC 10.8 H (4.5-10.0) K/mm3 RBC 5.25 (4.6-6.20) M/mm3 Hgb 15.1 (14.0-18.0) g/dL Hct 45.7 (42.0-52.0) % MCV 87.0 (80-100) fl MCH 28.8 (26-34) pg MCHC 33.0 (32-36) g/dl RDW 13.6 (11.5-14.5) % Plt Count 214 (150-375) k/mm3 MPV 9.6 (7.4-10.4) fl Immature Gran % (Auto) 0.3 (0-0.5) % Neut % (Auto) 58.2 (45.5-73.1) % Lymph % (Auto) 28.3 (18.3-44.2) % Lee % (Auto) 5.4 (2.6-8.5) % Eos % (Auto) 7.2 H (0-4.4) % Baso % (Auto) 0.6 (0.2-1.2) % Lymph # (Auto) 3.06 (0.9-3.2) K/mm3 Lee # (Auto) 0.6 (0.1-0.6) K/mm3 Eos # (Auto) 0.8 H (0-0.3) K/mm3 Baso # (Auto) 0.1 (0.0-0.1) K/mm3 Abs Immat Gran (auto) 0.03 (0.00-0.031) K/mm3 Absolute Neuts (auto) 6.3 (1.3-6.7) K/mm3 Absolute Nucleated RBC 0.000 (0.0-0.012) K/mm3 Nucleated RBC % 0.0 (0.0-0.2) % Sodium 142 (137-145) mmol/L Potassium 3.5 (3.4-5.0) mmol/L Chloride 106 (98-107) mmol/L Carbon Dioxide 26 (22-30) mmol/L Anion Gap 10 (4-12) mmol/L BUN 15 (9-20) mg/dL Creatinine 1.05 (0.7-1.3) mg/dL Estim Creat Clear Calc 120 ml/min Estimated GFR > 60 (59 - ) Glucose 108 (65-110) mg/dL Calcium 9.9 (8.4-10.2) mg/dL Total Bilirubin 1.0 (0.2-1.3) mg/dL AST 32 (17-59) U/L ALT 42 (6-50) U/L Alkaline Phosphatase 82 (38-126) U/L Total Protein 7.4 (6.3-8.2) g/dL Albumin 4.5 (3.5-5.1) g/dL Lipase 93 (23-300) U/L Urine Color Yellow (Yellow) Urine Appearance Cloudy H (Clear) Urine pH 6.0 (5.0-9.0) Ur Specific Austin 1.026 (1.001-1.035) Urine Protein Trace (Negative) mg/dL Urine Glucose (UA) Negative (Negative) mg/dL Urine Ketones Trace H (Negative) mg/dL Ur Blood (Man) 3+ H (Negative) Urine Nitrate Negative (Negative) Urine Bilirubin Negative (Negative) Urine Urobilinogen 1.0 (<2.0) mg/dL Leukocyte Esterase Rfl Negative (Negative) JUDY/UL Urine RBC >100 H (0-2) /hpf Urine WBC 0-5 (0-3) /hpf Ur Squamous Epith Cells None seen (Few) /hpf Urine Bacteria None seen /hpf Urine Casts 0-2 Imaging Data Radiologist's impression: ITS Impressions Abdomen/Pelvis CT 10/31/24 23:08 IMPRESSION: 1. 4 mm at least partially obstructing stone at the right ureterovesicular junction with mild right hydronephrosis but without joan hydroureter. 2. Subacute appearing T12 compression fracture. Critical Care Time Critical Care Time Critical Care Time: No Discharge Plan Discharge Clinical Impression: Kidney stone on right side Patient Disposition: Home Condition: Improved Instructions: Kidney Stones (ED), How to Strain Your Urine (ED) Additional Instructions: Return to the ER if you experience fever, abdominal pain with nausea and vomiting, you are unable to keep down liquids or solids, pain or burning with urination, blood in the urine or any other symptoms that are concerning to you Remain well hydrated. Take tamsulosin as prescribed. Strain your urine. Tylenol or Ibuprofen as needed for pain. Prescribed pain medication as needed Follow up with Urology, Dr. Kerr. Call to make an appointment Patient Language: Occitan Prescriptions: New tamsulosin 0.4 mg capsule 0.4 mg PO DAILY 7 Days Qty: 7 0RF hydrocodone-acetaminophen 5-325 mg tablet 1 tablet PO Q6H PRN (Reason: pain) Qty: 20 0RF No Action levothyroxine 100 mcg capsule 100 mcg PO DAILY omeprazole 40 mg capsule,delayed release(DR/EC) See Rx Instructions .ROUTE .COMPLEX Qty: 30 3RF Dose Instruction: TAKE 1 CAPSULE BY MOUTH DAILY Rx Instructions: TAKE 1 CAPSULE BY MOUTH DAILY budesonide 2 mg/10 mL oral suspension in packet 2 mg/10 mL suspension in packet 0RF Eohilia 2 mg/10 mL suspension in packet 10 ml PO BID Qty: 600 3RF Rx Instructions: administer in the morning and evening Follow-up/Referrals: Thad,HERMAN Adams [Primary Care Provider] - Endy Kerr MD [Physician] -
--- OUTSIDE RECORDS SUMMARY | 2024-11-01 00:38 | XMS_ITS | Clinical Summary ---
Author Organization [facility] Address [address] [place] [id number] Care Team Providers Care Employee Benefits Insurance Agent Name Role Phone Alice Rai MD Primary Care Provider [phone] Social History Tobacco Use Types Packs/Day Years [...] age to complete this topic Care Teams Employee Benefits Insurance Agent Relationship Specialty Start Date End Date Alice Rai MD PCP - General 08/28/15
--- OUTSIDE RECORDS SUMMARY | 2024-11-01 00:38 | XMS_ITS | Clinical Summary ---
Author Organization [facility] Address [address] [place] [place] [address] Care Team Providers Care Motorcycle Builder Name Role Phone Unavailable Primary Care Provider Unavailabl e Source Comments [facility],non-owned Affiliates and Associated Physician Practices is amultiple site organization consisting of ambulatory clinics and hospital sitesin [place], [place], [place] and [place]. This disclosure is being madepursuant to the Care Everywhere program and may not contain all information available regarding this patient. Last updated 17.[facility] Allergies Active Allergy Reactions Criticality Noted Date [...] age to complete this topic Insurance [facility] SELF PAY NO INSURANCE Member Subscriber Plan / Payer (Ef fective for All Dates) Name:Julio Salazar Jr. Member ID:Not on file Relation to Subscriber:Not on file Name:JULIO SALAZAR Subscriber ID:Not on file (Home) Address: [address] [place] [id number] Payer ID:Not on file Group ID:Not on file Type:Self Pay Address: [place], [place]
[2024-11-01] MEDS: KETOROLAC 15 MG/ML VIAL (*BKC) IV PUSH (00:44)
[2024-11-01 00:58] VITALS: BP 118/69; PULSE 72; RESP 14; TEMP 36.9; O2SAT 95
== END 2024-11-01 01:02 | disposition home or self-care (01) ==
LOC: ANHED 11-01 00:36
PROVIDERS: Student in an Organized Health Care Education/Training Program; Emergency Provider Physician Assistant; PCP Physician Assistant
DX: N13.2 Hydronephrosis with renal and ureteral calculous obstruction (principal); E89.0 Postprocedural hypothyroidism; K21.9 Gastro-esophageal reflux disease without esophagitis; G62.9 Polyneuropathy, unspecified; Z87.891 Personal history of nicotine dependence
CPT/HCPCS: 36415; 74177; 80053; 81001; 83690; 85025; 96374; 96375; 99284; J1885; J2270; J2405; Q9967